=== PATIENT | female | born 1960 | race Caucasian/White ===

== ENCOUNTER 2022-12-09 14:40 | Observation (INO) | payer OTHER ==
[2022-12-09 15:25] LABS: Basophils % (A) 0 %; Eosinophils # (A) 0.2 k/uL (0-0.7); Eosinophils % (A) 2 %; HCT 36.3 % (34.0-46.0); HGB 12.4 gm/dL (11.4-16.0); Lymphocytes # (A) 1.5 k/uL (1.0-4.8); Lymphocytes % (A) 21 %; MCH 28.3 pg (25.0-35.0); MCV 83.3 fL (80.0-100.0); Mean Platelet Volume 9.1; Monocytes # (A) 0.3 k/uL (0-1.0); Monocytes % (A) 5 %; Neutrophils # (A) 5.2 k/uL (1.3-7.7); Neutrophils % (A) 71 %; Platelet Count 154 k/uL (150-450); RBC 4.36 m/uL (3.80-5.40); RDW 14.4 % (11.5-15.5); WBC 7.3 k/uL (3.8-10.6)
[2022-12-09 15:32] LABS: ALT 18 U/L (4-34); AST 28 U/L (14-36); African American GFR (CKD) >90 (>60 ml/min/1.73 sqM); Albumin 4.2 g/dL (3.5-5.0); Alkaline Phosphatase 114 U/L (38-126); Anion Gap 7 mmol/L; Blood Urea Nitrogen 8 mg/dL (7-17); Calcium 9.2 mg/dL (8.4-10.2); Carbon Dioxide 29 mmol/L (22-30); Chloride 105 mmol/L (98-107); Glucose 104 mg/dL (74-99); Non-African American GFR(CKD) >90 (>60 ml/min/1.73 sqM); Potassium 3.7 mmol/L (3.5-5.1); Sodium 141 mmol/L (137-145); Total Bilirubin 0.5 mg/dL (0.2-1.3); Total Protein 7.5 g/dL (6.3-8.2)
[2022-12-09 15:38] LABS: INR 0.9 (<1.2); Partial Thromboplastin Time 25.1 sec (22.0-30.0); Prothrombin Time 9.8 sec (9.0-12.0)
--- NOTE | 2022-12-09 15:43 | XR ---
EXAMINATION TYPE: XR tibia fibula RT DATE OF EXAM: 12/09/2022 COMPARISON: None HISTORY: Pain, fracture TECHNIQUE: 3 view right tibia and fibula FINDINGS: There is an oblique fracture of the mid diaphysis of the fibula. There is subluxation of the talus laterally. Medial and posterior lateral tibial fractures are eviden t with extension into the articular surface. Note is made of Achilles tendon calcaneal heel spur. Images are obtained through fiberglass splint. IMPRESSION: 1. Fracture of the medial malleolus and posterior tibia and mid diaphyseal oblique fracture fibula.
[2022-12-09] MEDS ORDERED: NALOXONE 0.4 MG/ML 1 ML VIAL IV PRN (15:46)
[2022-12-09] MEDS ORDERED: ONDANSETRON 4 MG/2 ML VIAL IVP PRN (15:46)
--- NOTE | 2022-12-09 15:46 | ED ---
Lower Extremity Injury HPI - General Chief Complaint: Extremity Injury, Lower Stated Complaint: ankle injury Time Seen by Provider: 12/09/22 15:01 Source: patient, RN notes reviewed Mode of arrival: wheelchair Limitations: no limitations - History of Present Illness Initial Comments: 62-year-old female presents emergency from chief complaint of right ankle pain, injury. Patient was seen here 2 days ago for this complaint patient was splinted and follow up with orthopedics today. Patient sent over here for surgery tomorrow and to be admitted. Patient remains to be in splint. - Related Data Allergies Allergy/AdvReac Type Severity Reaction Status Date / Time No Known Allergies Allergy Verified 12/07/22 20:28 Review of Systems ROS Statement: Those systems with pertinent positive or pertinent negative responses have been documented in the HPI. ROS Other: All systems not noted in ROS Statement are negative. Past Medical History Past Medical History: Hypertension History of Any Multi-Drug Resistant Organisms: None Reported Past Surgical History: Section Past Psychological History: No Psychological Hx Reported, Depression Smoking Status: Former smoker Past Alcohol Use History: Rare Past Drug Use History: None Reported General Exam Limitations: no limitations General appearance: alert, in no apparent distress Head exam: Present: atraumatic, normocephalic, normal inspection Respiratory exam: Present: normal lung sounds bilaterally. Absent: respiratory distress, wheezes, rales, rhonchi, stridor Cardiovascular Exam: Present: regular rate, normal rhythm, normal heart sounds. Absent: systolic murmur, diastolic murmur, rubs, gallop, clicks Extremities exam: Present: other (Right ankle, leg and short leg splint) Course Vital Signs 12/09/22 14:49 Temperature 98.7 F Pulse Rate 68 Respiratory 16 Rate Blood Pressure 193/79 O2 Sat by Pulse 98 Oximetry Medical Decision Making - Medical Decision Making Was pt. sent in by a medical professional or institution (, PA, PHYSICIAN GYNECOLOGIST, urgent care, hospital, or [facility]...) When possible be specific @ -Dr. Simpson Did you speak to anyone other than the patient for history (EMS, parent, family, police, friend...)? What history was obtained from this source @ -No Did you review nursing and triage notes (agree or disagree)? Why? @ -I reviewed and agree with nursing and triage notes Were old charts reviewed (outside hosp., previous admission, EMS record, old EKG, old radiological studies, urgent care reports/EKG's, [facility] records)? Report findings @ -Reviewed prior imaging Differential Diagnosis (chest pain, altered mental status, abdominal pain women, abdominal pain men, vaginal bleeding, weakness, fever, dyspnea, syncope, headache, dizziness, GI bleed, back pain, seizure, CVA, palpatations, mental hea lth, musculoskeletal)? @ -Right ankle fracture, dislocation EKG interpreted by me (3pts min.). @ -As above X-rays interpreted by me (1pt min.). @ -[X-ray tib-fib showing evidence of trimalleolar fracture, mid fibular fracture CT interpreted by me (1pt min.). @ -CT ankle showing displacement, fracture U/S interpreted by me (1pt. min.). @ -None done What testing was considered but not performed or refused? (CT, X-rays, U/S, labs)? Why? @ -None What meds were considered but not given or refused? Why? @ -None Did you discuss the management of the patient with other professionals (professionals i.e. , PA, PHYSICIAN GYNECOLOGIST, lab, RT, psych nurse, psychosocial rehabilitation counselor, upholstery mechanic, teacher, chief compliance officer, showcase maker)? Give summary @ -Dr. Simpson about admission Was smoking cessation discussed for >3mins.? @ -No Was critical care preformed (if so, how long)? @ -No Were there social determinants of health that impacted care today? How? (Homelessness, low income, unemployed, alcoholism, drug addiction, transportation, low edu. Level, literacy, decrease access to med. care, prison, rehab)? @ -No Was there de-escalation of care discussed even if they declined (Discuss DNR or withdrawal of care, Hospice)? DNR status @ -No What co-morbidities impacted this encounter? (DM, HTN, Smoking, COPD, CAD, Cancer, CVA, ARF, Chemo, Hep., AIDS, mental health diagnosis, sleep apnea, morbid obesity)? @ -None Was patient admitted / discharged? Hospital course, mention meds given and route, prescriptions, significant lab abnormalities, going to OR and other pertinent info. @ -[Patient is admitted to orthopedics with consult to medicine for surgery tomorrow. Patient is to be nothing by mouth at midnight Undiagnosed new problem with uncertain prognosis? @ -No Drug Therapy requiring intensive monitoring for toxicity (Heparin, Nitro, Insulin, Cardizem)? @ -No Were any procedures done? @ -No Diagnosis/symptom? @ -Right bimalleolar fracture Acute, or Chronic, or Acute on Chronic? @ -Acute Uncomplicated (without systemic symptoms) or Complicated (systemic symptoms)? @ -Uncomplicated Side effects of treatment? @ -No Exacerbation, Progression, or Severe Exacerbation? @ -No Poses a threat to life or bodily function? How? (Chest pain, [place], [place], pneumonia, PE, COPD, DKA, ARF, appy, cholecystitis, CVA, Diverticulitis, Homicidal, Suicidal, threat to staff... and all critical care pts) @ -No - Lab Data Result diagrams: 12/09/22 15:07 12/09/22 15:07 Lab Results 12/09/22 12/09/22 12/09/22 Range/Units 15:07 15:07 15:07 WBC 7.3 (3.8-10.6) k/uL RBC 4.36 (3.80-5.40) m/uL Hgb 12.4 (11.4-16.0) gm/dL Hct 36.3 (34.0-46.0) % MCV 83.3 (80.0-100.0) fL MCH 28.3 (25.0-35.0) pg MCHC 34.0 (31.0-37.0) g/dL RDW 14.4 (11.5-15.5) % Plt Count 154 (150-450) k/uL MPV 9.1 Neutrophils % 71 % Lymphocytes % 21 % Monocytes % 5 % Eosinophils % 2 % Basophils % 0 % Neutrophils # 5.2 (1.3-7.7) k/uL Lymphocytes # 1.5 (1.0-4.8) k/uL Monocytes # 0.3 (0-1.0) k/uL Eosinophils # 0.2 (0-0.7) k/uL Basophils # 0.0 (0-0.2) k/uL PT 9.8 (9.0-12.0) sec INR 0.9 (<1.2) APTT 25.1 (22.0-30.0) sec Sodium 141 (137-145) mmol/L Potassium 3.7 (3.5-5.1) mmol/L Chloride 105 (98-107) mmol/L Carbon Dioxide 29 (22-30) mmol/L Anion Gap 7 mmol/L BUN 8 (7-17) mg/dL Creatinine 0.71 (0.52-1.04) mg/dL Est GFR (CKD-EPI)AfAm >90 (>60 ml/min/1.73 sqM) Est GFR (CKD-EPI)NonAf >90 (>60 ml/min/1.73 sqM) Glucose 104 H (74-99) mg/dL Calcium 9.2 (8.4-10.2) mg/dL Total Bilirubin 0.5 (0.2-1.3) mg/dL AST 28 (14-36) U/L ALT 18 (4-34) U/L Alkaline Phosphatase 114 (38-126) U/L Total Protein 7.5 (6.3-8.2) g/dL Albumin 4.2 (3.5-5.0) g/dL Disposition Clinical Impression: Closed right ankle fracture, Dislocation of right ankle joint Disposition: ADMITTED IP TO THIS [facility] Condition: Fair Referrals: None,Stated [Primary Care Provider] - 1-2 days Time of Disposition: 15:45
--- NOTE | 2022-12-09 16:27 | CT ---
EXAMINATION TYPE: CT ankle RT wo con DATE OF EXAM: 12/09/2022 COMPARISON: none HISTORY: right ankle pain from fall CT DLP: 79.[address] of the right ankle with reconstruction imaging. TECHNIQUE: Unenhanced CT of the right ankle was performed with bone and soft tissue window settings s ubmitted in the axial coronal and sagittal planes. At a separate workstation [id number] TR imaging was obta ined. FINDINGS: There is disruption of the ankle mortise with widening of the tibiotalar joint space at 13 mm. There is a displaced medial malleolar fracture with mild comminution. Displacement is noted at 8 mm. There is comminuted posterior malleolar fracture with displacement of 4 mm. Small ossific density is seen a djacent to the tarsal navicular and this could reflect a small chip or avulsion fracture. There is so ft tissue deformity and extensive edema seen. The talus is intact as is the os calcis. Plantar and do rsal calcaneal spur seen. IMPRESSION: 1. Disruption of the ankle mortise. 2. Displaced fractures of the medial and posterior malleoli. Extensive soft tissue swelling.
[2022-12-09] MEDS ORDERED: hydrALAZINE HCL 25 MG TAB PO STA (21:34)
--- NOTE | 2022-12-09 22:46 | P.CONS ---
History of Present Illness - Reason for Consult Consult date: 12/09/22 Medical management Requesting physician: William Simpson - Chief Complaint Disruption of ankle mortise - History of Present Illness This is a pleasant 62-year-old patient, follows with Dr. Durham. Patient initially presented to the hospital ER on December 07. Pain in the right ankle while walking her dog she is wrapped around the lesion fell down. Severe pain in the right ankle. She was splinted prior to arrival. X-ray had revealed acute fracture with complete dislocation of the ankle. Lateral displacement. Respect her tibia. Posterior and medial malleolus fracture fragments up for present. Some separation of tibia and fibula. Soft tissue swelling. Patient was splinted in the ER and sent home. Patient seen by Dr. Simpson's office and sent to the ER, for surgery tomorrow. In a splint. Pain present. Patient otherwise has got a good exercise tolerance. No cardiac history. No chest pain or shortness of breath. Review of systems: GEN.: None EYES: None HEENT: None NECK: None RESPIRATORY: None CARDIOVASCULAR: None GASTROINTESTINAL: Occasional reflux GENITOURINARY: None MUSCULOSKELETAL: As above and pain in the hand joints LYMPHATICS: None HEMATOLOGICAL: None PSYCHIATRY: None NEUROLOGICAL: None Past medical history to include: Depression, anxiety, reflux Social history: Lives alone. Her daughter's [id number] lives downstairs. Patient smoked for about 15 years stopped about 30 years ago. Alcohol occasionally. Physical examination: VITAL SIGNS: 99.1, 65, 17, 1 88 x 75, 98% room air GENERAL: BMI 34.8, declining but awake comfortable. EYES: Pupils equal. Conjunctiva normal. HEENT: External appearance of nose and ears normal, oral cavity grossly normal. NECK: JVD not raised; masses not palpable. HEART: First and second heart sounds are normal; no edema. LUNGS: Respiratory rate normal; clear to auscultation. ABDOMEN: Soft, nontender, liver spleen not palpable, no masses palpable. PSYCH: Alert and oriented x3; mood and affect normal. MUSCULOSKELETAL:No Clubbing/cyanosis;muscles-grossly intact. Oriented the hands. Right ankle splint dressing NEUROLOGICAL: Cranial nerves grossly intact; no facial asymmetry, power and sensation grossly intact. LYMPHATICS: No lymph nodes palpable in the axilla and neck INVESTIGATIONS, reviewed in the clinical context: White count 7.3 hemoglobin 12.4 platelets 154 sodium 141 potassium 3.7 creatinine 0.71 Assessment and plan: -Right ankle fracture, on December 07. Patient has been is a splint outpatient. Now being admitted for surgery. By Dr. Simpson. -Essential hypertension, uncontrolled We be noted that patient the pressure was running high even when patient presented to the ER 2 days ago. Probably some component of pain. Lopressor 50 mg twice a day -Depression and anxiety not otherwise specified Prozac -GERD Pepcid 20 mg daily at bedtime -Primary osteoarthritis of the hands Tylenol as needed -Obesity BMI 34.8 Weight loss measures, outpatient Given her history of smoking and high blood pressure will do an EKG and a check chest x-ray. Muscle blood pressure is under better control patient is medically stable to proceed with surgery. Patient has a "underlying exercise tolerance with no cardiac history or symptoms. Care was discussed the patient. Questions answered. Thank you Dr. Simpson. Past Medical History Past Medical History: Hypertension History of Any Multi-Drug Resistant Organisms: None Reported Past Surgical History: Section Additional Past Surgical History / Comment(s): x2. Past Anesthesia/Blood Transfusion Reactions: No Reported Reaction Past Psychological History: No Psychological Hx Reported, Depression Smoking Status: Former smoker Past Alcohol Use History: Rare Past Drug Use History: None Reported Medications and Allergies Home Medications Medication Instructions Recorded Confirmed Type FLUoxetine HCL [PROzac] 20 mg PO DAILY 12/09/22 12/09/22 History Allergies Allergy/AdvReac Type Severity Reaction Status Date / Time No Known Allergies Allergy Verified 12/09/22 18:22 Physical Exam Vitals: Vital Signs Temp Pulse Pulse Resp BP BP Pulse Ox 12/09/22 19:54 99.1 F 65 17 188/75 98 12/09/22 18:36 98.8 F 70 18 194/91 98 12/09/22 18:02 99 F 71 18 163/76 99 12/09/22 14:49 98.7 F 68 16 193/79 98 Intake and Output 12/09/22 12/09/22 12/09/22 06:59 14:59 22:59 Other: Weight 100.698 kg 100.698 kg Results CBC & Chem 7: 12/09/22 15:07 12/09/22 15:07 Labs: Abnormal Lab Results - Last 24 Hours (Table) 12/09/22 Range/Units 15:07 Glucose 104 H (74-99) mg/dL
[2022-12-09] MEDS: METOPROLOL TARTRATE 50 MG TAB PO SCH (23:09)
[2022-12-09] MEDS: ENOXAPARIN 40 MG/0.4 ML SYRINGE SQ SCH (23:10)
[2022-12-10] MEDS: HYDROcodone/APAP 5-325MG 1 EACH TAB PO PRN ×2 (00:32→21:04)
[2022-12-10] MEDS: FLUoxetine HCL 20 MG CAP PO SCH (08:25)
[2022-12-10] MEDS: METOPROLOL TARTRATE 50 MG TAB PO SCH ×2 (08:25→21:04)
--- NOTE | 2022-12-10 09:23 | XR ---
EXAMINATION TYPE: XR chest 1V portable DATE OF EXAM: 12/10/2022 Comparison: None Clinical History: 62-year-old female preoperative assessment, ex-smoker, Findings: The heart is upper limits of normal in size. Aorta and pulmonary vasculature within normal limits. No consolidation or pleural effusion. Impression: No acute cardiopulmonary process.
--- NOTE | 2022-12-10 09:53 | P.HPOR ---
History of Present Illness H&P Date: 12/10/22 Chief Complaint: Right ankle fracture, right mid shaft fibular fracture Patient is a 62-year-old female who was admitted to [facility] on 12/09/2022 after being evaluated by Dr. Simpson in the outpatient setting after an injury to her right ankle. Patient was initially evaluated at [facility] ER on 12/07/2022 after being knocked over by his dog. Patient was brought to the hospital by EMS, there is obvious deformity to the right lower extremity. Images did demonstrate a right ankle dislocation with syndesmotic disruption, medial and posterior malleolus fracture and a midshaft fibular fracture. We were not contacted by the emergency room staff regarding this patient. Patient didn't show up in the office for evaluation by Dr. Samara nevarez, was determined due to the displacement that she would need surgery, she was advised to report to the hospital for admission and surgical procedure. Patient was evaluated today at bedside, she is resting comfortably with the foot elevated. Internal medicine is alert he evaluated the patient. The posterior splint remains intact. She notes discomfort in the right lower extremity near the foot and ankle. She denies any other orthopedic complaints at this time. She denies any previous orthopedic surgery to the right lower extremity. Patient denies any on any blood thinners. Review of Systems Constitutional: Reports as per HPI Past Medical History Past Medical History: Hypertension History of Any Multi-Drug Resistant Organisms: None Reported Past Surgical History: Section Additional Past Surgical History / Comment(s): x2. Past Anesthesia/Blood Transfusion Reactions: No Reported Reaction Past Psychological History: No Psychological Hx Reported, Depression Smoking Status: Former smoker Past Alcohol Use History: Rare Past Drug Use History: None Reported Medications and Allergies Home Medications Medication Instructions Recorded Confirmed Type FLUoxetine HCL [PROzac] 20 mg PO DAILY 12/09/22 12/09/22 History Allergies Allergy/AdvReac Type Severity Reaction Status Date / Time No Known Allergies Allergy Verified 12/09/22 18:22 Physical Examination Right lower extremity: Postop splint and Huber wrap are positioned Logroll maneuver the hip reproduces no groin pain, no tenderness with palpation surrounding the right knee Patient is able to wiggle the toes Sensation to light touch both proximal/distal to the splint are intact, skin is warm to touch Results - Labs Labs: Abnormal Lab Results - Last 24 Hours (Table) 12/09/22 Range/Units 15:07 Glucose 104 H (74-99) mg/dL H & H 12/09/22 Range/Units 15:07 Hgb 12.4 (11.4-16.0) gm/dL Hct 36.3 (34.0-46.0) % Coagulation 12/09/22 Range/Units 15:07 INR 0.9 (<1.2) Result Diagrams: 12/09/22 15:07 12/09/22 15:07 - Diagnostic results Ankle/Foot x-ray: report reviewed, image reviewed Ankle/Foot CT: report reviewed, image reviewed Assessment and Plan Assessment: Right ankle medial malleolar and posterior malleolar fractures Right midshaft fibular fracture Status post ankle dislocation and relocation Other medical comorbidities Plan: Imaging: Multiple x-rays were reviewed both prereduction and postreduction films along with ankle CT of the right ankle. Images demonstrate along with reports displaced fractures involving the medial malleolus and posterior malleolus of the right ankle. The mid shaft right fibular fracture is also noted. Plan: Patient was evaluated in the outpatient setting by Dr. Simpson on 12/09/2022, and she was then admitted to the hospital with plan for surgical intervention Risks and benefits of the procedure were again discussed the patient at bedside, this including but not excluded blood loss, neurovascular injury, developmental blood clots, and medical healing of bone, need for further surgery. Patient is in good understanding like to proceed Patient will be scheduled for an ORIF of the right ankle versus external fixator placement pending soft tissue quality Nonweightbearing right lower extremity at this time, ELEVATION AND ICE DVT prophylaxis, subcu medications restarted after surgery Pain control, oral and IVs as needed Medical recommendations Further recommendations to follow Time with Patient: Less than 30
[2022-12-10] MEDS: ENOXAPARIN 40 MG/0.4 ML SYRINGE SQ SCH (10:32)
[2022-12-10] MEDS: HYDROmorphone 0.5 MG/0.5 ML SYRINGE IVP PRN (10:54)
[2022-12-10] MEDS: CHLORTHALIDONE 25 MG TAB PO SCH (13:32)
--- NOTE | 2022-12-10 15:49 | P.PN ---
Progress Note - Text Progress Note Date: 12/10/22 PT seen and examined in Pre op. All questions answered. She agrees with plan of ex-fix vs ORIF of the ankle and understands the reasons for both procedures. She and her daughter at bedside had all questions answered. We went over risk review again and they were comfortable proceeding. Site was marked. Consent signed.
[2022-12-10] MEDS ORDERED: LACTATED RINGERS 1,000 ML IV ONE ×2 (15:51→18:23)
[2022-12-10] MEDS ORDERED: MIDAZOLAM 2 MG/2 ML VIAL IVP ONE (16:08)
[2022-12-10] MEDS ORDERED: fentaNYL (PF) 50 MCG/ML 2 ML AMP IVP ONE (16:29)
[2022-12-10] MEDS ORDERED: ePHEDrine 50 MG/ML 1 ML VIAL ONE (16:30)
[2022-12-10] MEDS ORDERED: MIDAZOLAM 2 MG/2 ML VIAL ONE (16:30)
[2022-12-10] MEDS ORDERED: fentaNYL (PF) 50 MCG/ML 2 ML AMP ONE (16:30)
[2022-12-10] MEDS ORDERED: HYDROmorphone (PF) 1 MG/ML ONE (16:30)
[2022-12-10] MEDS ORDERED: LIDOCAINE 1% INJ 10MG/ML (20 ML MDV) ONE (16:30)
[2022-12-10] MEDS ORDERED: PROPOFOL 10 MG/ML 20 ML VIAL IV ONE (16:30)
[2022-12-10] MEDS ORDERED: GENTAMICIN 380 MG in SODIUM CHLORIDE 0.9% 100 ML IVPB PRN (17:03)
[2022-12-10] MEDS ORDERED: ceFAZolin 1,000 MG in SODIUM CHLORIDE 0.9% 1,000 ML IRRIGATION ONE (17:11)
--- NOTE | 2022-12-10 18:11 | XR ---
Fluoroscopy History: ORIF RIGHT ANKLE 1 min 13 sec fl-DAP .77
--- NOTE | 2022-12-10 18:56 | P.OP ---
Date of Procedure: 12/10/22 Preoperative Diagnosis: 1. RIGHT TRIMALLEOLAR FRACTURE DISLOCATION 2. S/P FALL FROM STANDING Postoperative Diagnosis: 1. RIGHT TRIMALLEOLAR FRACTURE DISLOCATION 2. S/P FALL FROM STANDING Procedure(s) Performed: 1. OPEN REDUCTION AND INTERNAL FIXATION RIGHT ANKLE MEDIAL MALLEOLUS AND SYNDESMOSIS 2. APPLICATION OF SHORT LEG AO SPLINT RIGHT Implants: ARTHREX MEDIAL COMPRESSION LOCKING SCREWS ARTHREX TIGHT ROPE X2 WITH TWO HOLE LATERAL PLATE ARTHROCELL 2.5 CC Anesthesia: MAC Surgeon: William Simpson Floor Supervisor #1: Clifton Carrasco (RUDDY Liang Was present and assisted with all aspects of the case from positioning to dressing placement) Estimated Blood Loss (ml): 25 IV fluids (ml): 1,200 Urine output (ml): 0 Pathology: none sent Condition: stable Disposition: PACU Indications for Procedure: Orthopedic Surgery Risk Review Marycarmen Winters is a 62-year-old female presenting for evaluation of sudden onset right ankle pain, inability to ambulate after her dog tripped her and she fell twisting her right ankle. It was my pleasure to have seen and examined Marycarmen Winters. In our visit today we have had a chance to go over subjective complaints, physical examination findings and treatments including the natural course history without intervention and various interventional options. her imaging demonstrates right ankle fracture dislocation trimalleolar. On physical exam, Marycarmen Winters demonstrates pain with motion of right lower extremity, which is NV intact at this time. I have explained to the patient that this fracture needs stabilization. Based on the patients imaging, physical exam, and the rapid progression and disabling nature of her symptoms, at this time I recommend surgery in the form or a: open reduction internal fixation right ankle with syndesmotic fixation versus ex-fix placement I discussed the risk and benefits of this procedure at length with Marycarmen Winters. Questions were invited and answered, and the patient wishes to proceed as outlined below. Currently, I am recommendin. open reduction and internal fixation right ankle with syndesmotic fixation versus ex-fix 2. Review of surgical risks and benefits as well as an educational packet on the proposed surgical procedure. Risks: All surgical procedures come with inherent risks, including those related to positioning, anesthesia, intraoperative findings, and postoperative complications. It is important to understand that surgery does not come with any guarantee of a successful outcome as complications and adverse events are always possible. The patient was given a handout discussing the surgical procedure and risks associated with the intervention, both of which were discussed with the patient. These risks include but are not limited to the following: - Experiencing same, different or even worse symptoms compared to before surgery. - Requiring further surgery or other forms of treatment presently or at some time in the future . - On an extreme but fortunately relatively rare basis severe complication such as blindness, stroke, heart attack, temporary and/or permanent nerve injury, paralysis, coma, or may occur, sometimes without known expl anation. - Surgical complications may include but are not limited to risk of infection, fluid accumulation in the surgical dissection site, including a seroma or hematoma, that requires additional surgery, wound drainage, bleeding, new numbness or weakness, vision changes/loss, spinal fluid leakage, non-healing and/or infected incision, headaches, difficulty or inability to swallow, hoarsen ess, hemopneumothorax, pneumothorax, injury to nerves, spinal cord, blood vessels, lymphatics or other vital organs (i.e., bowel injury, injury to the great vessels); heterotopic bone formation; complications related to the hardware such as screws, rods, including misplaced hardware, device failure, hardware fracture/breakage, or hardware loosening; retained surgical instrumentations or devices and the need for further surgery. - Medical risks of the planned surgery include but are not limited to generalized Infections to the whole body or local areas outside of the surgical site (sepsis), heart attack, bleeding, anaphylaxis, meningitis, seizure, epilepsy, hearing loss, burn jacob, laceration of the head or other areas of the body, bruising, hypersensitivity of the skin, bladder over distension; allergic reaction; shoulder injury related to positioning; fat, blood and air clots to other areas of the body like heart, lungs, brain; failure of internal organs such as lungs, kidneys, liver and excessive bleeding. If blood transfusions are necessary, note that transfusions may cause intolerance reactions such as anaphylaxis or other complex reactions. Despite best efforts, the results of surgery might not heal in terms of bone, soft tissues such as skin, fascia, ligaments, and joints. [facility] has multiple operating rooms with single and overlapping r ooms running daily. They currently function under the required guidelines as produced by the Senate Finance Committee with regards to the overlapping rooms and will continue to comply with changes to this policy as they occur. The requirements include and are complied with as follows: (1) the critical portions of the overlapping rooms will not occur at the same time, (2) the attending physician will be physically present during the critical portions of the procedure and immediately available during the entire case, and (3) a back-up attending is designated should the primary attending not be immediately available. The patient has had a chance to review all the listed information, has been given print outs detailing this information, and has had all his/her questions answered to their satisfaction. It was my pleasure to have seen and examined Marycarmen Winters. In our visit today we have had a chance to go over my understanding of our patient's current condi tion, the natural course history without intervention and various interventional options. Questions were invited and answered, and the patient wishes to proceed as outlined above. I have seen and examined the patient for 25 minutes and we have spent more than 50% of the time in repeat and detailed counseling about the patient's condition, its natural course history with out and as much as can be p redicted with surgery and re-review of various surgical treatment options. In conclusion, Marycarmen Winters and daughter at bedside requested we proceed with the above suggested surgery and are willing to accept risks and limitations of the suggested surgery as nature of the disease process and our best attempts at treatment for the condition. Thank you again for allowing us to be part of your patient's care. Please don't hesitate to contact me if you have any further questions. Signed and authenticated by: William Kim [facility] [address] [place] [id number] Description of Procedure: Right ankle ORIF (Trimal) with syndesmotic fixation The patient was seen and examined in the preoperative area. All preoperative protocols were followed. Informed consent was obtained, risks and benefits of the procedure were discussed at length. Risks including bleeding infection damage to the surrounding tissue and risk of reoperation were discussed with the patient. Risk of anesthesia up to and including was discussed with the patient. These are outlined in the risk reviewed. They were willing to accept these risks and all of the risks of surgery. The patient was given a weight- based dose of antibiotics in the form of 2 g Ancef. The patient was seen and evaluated by the anesthesia team who deemed them fit for surgery. The site was marked, the patient was willing to proceed with the procedure. The patient was transferred to the operative suite by the Department of anesthesia. T andreay were then drifted off to sleep by the department of anesthesia and GETA anesthesia was used. Once adequate anesthesia had been obtained the patient was carefully transferred to the operative bed. All bony prominences were padded acc ordingly. SCDs were placed on the nonoperative lower extremities. Arms were well padded. The patient's right leg was placed on a bone foam ramp and a tourniquet was placed on the patient's right upper thigh. 1015 placed around the leg. The contralateral leg was secured to the table with tape. A bump was placed under the patient's right hip. Preoperative briefing was done with the operative team and everyone was ready for the procedure to start. The patient's right leg was then prepped and draped in the normal sterile fashion. Timeout was then performed and all parties in agreement with the procedure to be performed. the leg was inspected there were fracture blisters which were starting on the anterior surface however none were in the surgical field or where incisions will be maintained and there is reasonable enough wrinkling tibial to fix the ankle at this time at least the syndesmosis and the medial malleolus. Posteriorly there is a lot of swelling and hematoma and sole of the posterior mount might have to wait until later date. Leg was exsanguinated and the tourniquet inflated to 280 mmHg. incision was made longitudinally over the medial malleolus which was highly displaced an unstable. Blunt dissection taken down until the fracture was identified fracture line was then cleaned of any periosteum. The fracture itself was then curetted and irrigated. A drill hole was made proximally in the tibia and a [id number] clamp was then used to reduce the medial malleolus and position. The fracture was grafted as well at this point to 20 K wires were then placed for stability followed by a 1.6 K wire in the trajectory of the medial malleolar screws that was desired. 2 of these screws were then placed over K wires which were previously placed in optimal position on AP and lateral. This held the fracture reduced while the clamp was removed and the fracture was tested and was stable. The 2 pins were removed and the fracture again was tested and it was stable. Attention was then drawn to the lateral side of the ankle. Skin incision was made longitudinally over the distal lateral fibula blunt dissection taken down. There is true periosteal stripping just happened due to the large syndesmotic injury. A cotton test confirmed syndesmotic injury under AP fluoroscopy. A 2 hole plate was then selected and pinned in position with an drilled just above the physis still scar and a 30 anterior orientation for a tight rope. First tight rope was then placed and secured into position and a second tight rope was then drilled in a similar fashion and placed and secured into position. Both tight ropes were then tensioned. This allowed for great reduction of the syndesmosis. These were then secured the patient was removed from the plate and was stable. The ankle was again tested with external rotation and cotton test which showed syndesmotic stability. Lateral imaging revealed a posterior malleolus piece which had not reduced entirely and was somewhat large and also showed some increased instability when plantar flexion. It was discussed with the patient previously in the perioperative area that we might have to come back and fix the posterior malleolus of the different time as her swelling was too much posteriorly to be able to achieve this through the incision we made or a separate posterior incision. the wounds were then copiously irrigated with normal sterile saline final images confirmed good reduction and stability of the ankle. The wounds were then closed with 0 Vicryl in the subcu tissue and 2-0 nylon in a running fashion in the skin. The wound edges approximated very well. The wounds were then cleaned and dressed sterilely with Adaptic 4 x 4's ABDs and overwrapped with web roll. She was then placed in a well-padded well molded AO short-leg splint on the right which was then overwrapped with an Huber wrap. The patient was then transferred back to their hospital bed. They were awakened by the department of anesthesia having tolerated the procedure very well with no complications. The patient was then transported to the postoperative care unit in stable condition.
[2022-12-10] MEDS ORDERED: HYDROmorphone 0.5 MG/0.5 ML SYRINGE IVP PRN (19:34)
[2022-12-10] MEDS ORDERED: hydrOXYzine pamoate 25 MG CAP PO PRN (19:34)
[2022-12-10] MEDS ORDERED: SENNOSIDES-DOCUSATE SODIUM 1 EACH TAB PO PRN (19:34)
[2022-12-10] MEDS ORDERED: HYDROmorphone 1 MG/ML 1 ML SYRINGE IVP PRN (19:34)
--- NOTE | 2022-12-10 20:19 | P.PN ---
Progress Note - Text Progress Note Date: 12/10/22 - Chief Complaint Disruption of ankle mortise - History of Present Illness This is a pleasant 62-year-old patient, follows with Dr. Durham. Patient initially presented to the hospital ER on December 07. Pain in the right ankle while walking her dog she is wrapped around the lesion fell down. Severe pain in the right ankle. She was splinted prior to arrival. X-ray had revealed acute fracture with complete dislocation of the ankle. Lateral displacement. Respect her tibia. Posterior and medial malleolus fracture fragments up for present. Some separation of tibia and fibula. Soft tissue swelling. Patient was splinted in the ER and sent home. Patient seen by Dr. Simpson's office and sent to the ER, for surgery tomorrow. In a splint. Pain present. Patient otherwise has got a good exercise tolerance. No cardiac history. No chest pain or shortness of breath. December 10: Patient seen this morning. Resting in bed. Nothing by mouth for surgery. No new conditions. Discussed with nurse. Pending surgery this afternoon. EKG and chest x-ray reviewed. Informed nurse again patient is stable for surgery. Medications reviewed Past medical history to include: Depression, anxiety, reflux Social history: Lives alone. Her daughter's tuuglg-to-fib lives downstairs. Patient smoked for about 15 years stopped about 30 years ago. Alcohol occasionally. Physical examination: VITAL SIGNS: 98.3, 57, 17, 1:30/72, 96% room air GENERAL: BMI 34.8, and declining in bed comfortable EYES: Pupils equal. Conjunctiva normal. HEENT: External appearance of nose and ears normal, oral cavity grossly normal. NECK: JVD not raised; masses not palpable. HEART: First and second heart sounds are normal; no edema. LUNGS: Respiratory rate normal; clear to auscultation. ABDOMEN: Soft, nontender, liver spleen not palpable, no masses palpable. PSYCH: Alert and oriented x3; mood and affect normal. MUSCULOSKELETAL:No Clubbing/cyanosis;muscles-grossly intact. Oriented the hands. Right ankle splint dressing INVESTIGATIONS, reviewed in the clinical context: EKG tracing personally reviewed by me-normal sinus rhythm Chest x-ray film personally reviewed by me-clear White count 7.3 hemoglobin 12.4 platelets 154 sodium 141 potassium 3.7 creatinine 0.71 Assessment and plan: -Right ankle fracture, on December 07. Patient has been is a splint outpatient. Pending surgery this afternoon. By Dr. Simpson. -Essential hypertension, controlled Chlorthalidone 25 mg daily added Lopressor 50 mg twice a day -Depression and anxiety not otherwise specified Prozac -GERD Pepcid 20 mg daily at bedtime -Primary osteoarthritis of the hands Tylenol as needed -Obesity BMI 34.8 Weight loss measures, outpatient Stable to proceed for surgery. Discussed with patient. Discussed with nurse. Thank you Dr. Simpson. Past Medical History Past Medical History: Hypertension History of Any Multi-Drug Resistant Organisms: None Reported Past Surgical History: Section Additional Past Surgical History / Comment(s): x2. Past Anesthesia/Blood Transfusion Reactions: No Reported Reaction Past Psychological History: No Psychological Hx Reported, Depression Smoking Status: Former smoker Past Alcohol Use History: Rare Past Drug Use History: None Reported
[2022-12-10 20:25] LABS: Basophils % (A) 0 %; Eosinophils # (A) 0.2 k/uL (0-0.7); Eosinophils % (A) 3 %; HCT 32.7 % (34.0-46.0); HGB 10.3 gm/dL (11.4-16.0); Lymphocytes # (A) 1.3 k/uL (1.0-4.8); Lymphocytes % (A) 21 %; MCHC 31.4 g/dL (31.0-37.0); MCV 85.9 fL (80.0-100.0); Mean Platelet Volume 10.4; Monocytes # (A) 0.3 k/uL (0-1.0); Monocytes % (A) 5 %; Neutrophils # (A) 4.2 k/uL (1.3-7.7); Neutrophils % (A) 70 %; Platelet Count 141 k/uL (150-450); RDW 14.6 % (11.5-15.5); WBC 6.1 k/uL (3.8-10.6)
--- NOTE | 2022-12-10 21:12 | CT ---
EXAMINATION TYPE: CT ankle RT wo con DATE OF EXAM: 12/10/2022 COMPARISON: 12/09/2022 HISTORY: 62-year-old female Post op alignment eval. TECHNIQUE: Contiguous axial scanning of the right ankle without IV contrast. Coronal and sagittal rec onstructions performed. 3 view reconstructions generated on a dedicated workstation. CT DLP: 503.8 mGycm Automated exposure control for dose reduction was used. FINDINGS: Generalized soft tissue swelling. Redemonstrated transverse fracture through the base of the medial malleolus. Interval placement of 2 cortical screw fixation of the medial malleolus fracture fragment. While alignment has improved signi ficantly, there is residual 3 mm lateral displacement in comparison to 9 mm previously. The margins o f the fracture have been brought into apposition. Comminuted fracture posterior malleolus is redemonstrated. An osseous gap of the posterior tibial art icular surface measures up to 7 mm, unchanged from prior. There is a persistent 1.2 cm fracture fragm ent embedded within the intervening gap, sagittal image 58 and axial image 72. Intra-articular extens ion into both the posterior tibiotalar joint as well as the distal tibiofibular joint. There is syndesmotic tight rope fixation also present. Scattered soft tissue and intra-articular air related to patient's operation. Note that the posterior tibial tendon is entrapped between the posterior malleolar fracture fragment. For example, reference axial image 70. Small posterior and plantar heel spurs. There is mild to moderate fusiform thickening at the Achilles insertion compatible with tendinopathy. IMPRESSION: 1. COMMINUTED FRACTURE POSTERIOR MALLEOLUS IS REDEMONSTRATED. THERE IS PERSISTENT 7 MM OSSEOUS GAP OF THE DISTAL TIBIAL ARTICULAR SURFACE AND A PERSISTENT 1.2 CM FRACTURE FRAGMENT EMBEDDED WITHIN THE IN TERVENING GAP. ADDITIONAL INTRA-ARTICULAR EXTENSION INTO THE DISTAL TIBIOFIBULAR JOINT. 2. NOTE THAT THE POSTERIOR TIBIAL TENDON HAS BECOME ENTRAPPED BETWEEN THE POSTERIOR MALLEOLAR FRACTUR E FRAGMENT. 3. IMPROVED ALIGNMENT OF THE MEDIAL MALLEOLAR FRACTURE FRAGMENT AFTER CORTICAL SCREW FIXATION. MINIMA L 3 MM OF RESIDUAL LATERAL DISPLACEMENT. 4. TRANS-SYNDESMOTIC TIGHT ROPE FIXATION. 5. MILD TO MODERATE INSERTIONAL ACHILLES TENDINOSIS.
--- NOTE | 2022-12-10 22:03 | FL ---
EXAMINATION TYPE: FL guidance operating room DATE OF EXAM: 12/10/2022 Comparison: None Clinical History: 62-year-old female ORIF RIGHT ANKLE Findings: 7 images are provided during syndesmotic fixation as well as medial malleolus fixation. Mildly displa oma fracture of the posterior malleolus is redemonstrated. FLUOROSCOPY Fluoroscopy time of 1 minute 13 seconds was used during right ankle fracture fixation. DAP 0.77 mGyc m2. Impression: Intraoperative fluoroscopy as above.
[2022-12-11] MEDS: HYDROmorphone 0.5 MG/0.5 ML SYRINGE IVP PRN (00:03)
[2022-12-11] MEDS: HYDROcodone/APAP 5-325MG 1 EACH TAB PO PRN ×3 (01:40→21:26)
[2022-12-11] MEDS: ASPIRIN 81 MG PO SCH (09:16)
[2022-12-11] MEDS: METOPROLOL TARTRATE 50 MG TAB PO SCH ×2 (09:16→21:26)
[2022-12-11] MEDS: FLUoxetine HCL 20 MG CAP PO SCH (09:16)
[2022-12-11] MEDS: CHLORTHALIDONE 25 MG TAB PO SCH (09:16)
[2022-12-11] MEDS: ENOXAPARIN 40 MG/0.4 ML SYRINGE SQ SCH (09:16)
--- NOTE | 2022-12-11 13:45 | P.PN ---
Progress Note - Text Progress Note Date: 12/11/22 Patient seen and examined, I reviewed the note, discussed the case with the PA first hand and agree with the assessment and plan of RUDDY Liang. Please see my notes below for any additional recommendations. patient is doing well no fevers chills shortness breath or chest pain overnight. Minimal pain. Still swelling right ankle and toes. Splint in place. 14 points review of systems completed and as stated in HPI, all other systems reviewed are negative. Vital signs stable AO 3 Physical Exam: -Patient is alert and oriented 3 appears well-nourished well-hydrated is in no acute distress. They do not appear septic. -There is TTP right leg and ankle [-Incision is CDI, no EEE, no drainage] -Upper extremities show [5] out of 5 strength in all major muscle groups. [##EXCEPT] -Lower extremities with [5] out of 5 strength in all major muscle groups except for right ankle in splint -There is [FROM] that is [painless] of the b/l UE and LE in all major joints. except for right ankle in splint -They are intact to light touch sensation in C5 to T1 and L2 to S1 nerve distribution. -DTR [2]/4 all upper and lower extremities -Patient has palpable distal pulses all 4 ext -Compartments are soft and compressible. -Patient shows a negative Shari's Cranial nerves II through XII are grossly intact. postop day 1 right ankle ORIF - nonweightbearing right lower extremity - ice rest and elevation for pain is controlled - pain meds as needed - PT OT daily with assist walker - aspirin 81 daily - GI prophylaxis - discussed at length with the patient treatment options. She has a large posterior malleolar fracture which has entrapment of the posterior tibial tendon. She is too swollen yesterday to fix this however she may be okay by Wednesday to have this fixed. We discussed waiting until Wednesday for posterior malleolus fixation and she agrees. We will monitor here in the hospital continue with meds as well as elevation and swelling control. We discussed nonoperative treatment as well however due to the entrapment of the tendon as well as the large piece and the ankle instability of do feel is her best interest to have this fixed. She understands and is grateful. She is in agreement with the plan. We will plan for OR for surgical fixation of the posterior malleolar fracture on December 15.
--- NOTE | 2022-12-11 15:12 | P.PN ---
Progress Note - Text Progress Note Date: 12/11/22 - Chief Complaint Disruption of ankle mortise - History of Present Illness This is a pleasant 62-year-old patient, follows with Dr. Durham. Patient initially presented to the hospital ER on December 07. Pain in the right ankle while walking her dog she is wrapped around the lesion fell down. Severe pain in the right ankle. She was splinted prior to arrival. X-ray had revealed acute fracture with complete dislocation of the ankle. Lateral displacement. Respect her tibia. Posterior and medial malleolus fracture fragments up for present. Some separation of tibia and fibula. Soft tissue swelling. Patient was splinted in the ER and sent home. Patient seen by Dr. Simpson's office and sent to the ER, for surgery tomorrow. In a splint. Pain present. Patient otherwise has got a good exercise tolerance. No cardiac history. No chest pain or shortness of breath. December 10: Patient seen this morning. Resting in bed. Nothing by mouth for surgery. No new conditions. Discussed with nurse. Pending surgery this afternoon. EKG and chest x-ray reviewed. Informed nurse again patient is stable for surgery. December 11: Patient yesterday underwent open reduction internal fixation right ankle medial malleolus and syndesmosis. Had about 75% of lunch. No nausea vomiting. Pain control. In bed. Active Medications Hydrocodone Bitart/Acetaminophen (Hydrocodone/Apap 5-325mg 1 Each Tab) 1 each PO Q4HR PRN PRN Reason: Moderate Pain (Scale 4 to 6) Last Admin: 12/11/22 09:16 Dose: 1 each Aspirin (Aspirin 81 Mg) 81 mg PO DAILY [facility] Last Admin: 12/11/22 09:16 Dose: 81 mg Chlorthalidone (Chlorthalidone 25 Mg Tab) 25 mg PO DAILY [facility] Last Admin: 12/11/22 09:16 Dose: 25 mg Enoxaparin Sodium (Enoxaparin 40 Mg/0.4 Ml Syringe) 40 mg SQ DAILY [facility] Last Admin: 12/11/22 09:16 Dose: 40 mg Fluoxetine HCl (Fluoxetine Hcl 20 Mg Cap) 20 mg PO DAILY [facility] Last Admin: 12/11/22 09:16 Dose: 20 mg Hydromorphone HCl (Hydromorphone 0.5 Mg/0.5 Ml Syringe) 0.5 mg IVP Q3HR PRN PRN Reason: Moderate Pain (Scale 4 to 6) Last Admin: 12/11/22 00:03 Dose: 0.5 mg Hydromorphone HCl (Hydromorphone 0.5 Mg/0.5 Ml Syringe) 0.5 mg IVP Q3HR PRN PRN Reason: Pain Scale 4 to 6 Hydromorphone HCl (Hydromorphone 1 Mg/Ml 1 Ml Syringe) 1 mg IVP Q3HR PRN PRN Reason: Pain Scale 7 to 10 Hydroxyzine Pamoate (Hydroxyzine Pamoate 25 Mg Cap) 25 mg PO Q6HR PRN PRN Reason: Nausea/Anxiety Metoprolol Tartrate (Metoprolol Tartrate 50 Mg Tab) 50 mg PO BID [facility] Last Admin: 12/11/22 09:16 Dose: 50 mg Naloxone HCl (Naloxone 0.4 Mg/Ml 1 Ml Vial) 0.2 mg IV Q2M PRN PRN Reason: Opioid Reversal Ondansetron HCl (Ondansetron 4 Mg/2 Ml Vial) 4 mg IVP Q8HR PRN PRN Reason: Nausea And Vomiting Last Admin: 12/10/22 16:07 Dose: 4 mg Senna/Docusate Sodium (Sennosides-Docusate Sodium 1 Each Tab) 2 each PO HS PRN PRN Reason: Constipation Past medical history to include: Depression, anxiety, reflux Social history: Lives alone. Her daughter's [id number] lives downstairs. Patient smoked for about 15 years stopped about 30 years ago. Alcohol occasionally. Physical examination: VITAL SIGNS: 98.3, 92, 16, 126/65, 96% room air GENERAL: reclining in bed comfortable EYES: Pupils equal. Conjunctiva normal. HEENT: External appearance of nose and ears normal, oral cavity grossly normal. NECK: JVD not raised; masses not palpable. HEART: First and second heart sounds are normal; no edema. LUNGS: Respiratory rate normal; clear to auscultation. ABDOMEN: Soft, nontender, liver spleen not palpable, no masses palpable. PSYCH: Alert and oriented x3; mood and affect normal. MUSCULOSKELETAL:No Clubbing/cyanosis;muscles-grossly intact. Oriented the hands. Right ankle in postoperative dressing INVESTIGATIONS, reviewed in the clinical context: December 10: White count 6.1 hemoglobin 10.3 platelets 141 EKG tracing personally reviewed by me-normal sinus rhythm Chest x-ray film personally reviewed by me-clear White count 7.3 hemoglobin 12.4 platelets 154 sodium 141 potassium 3.7 creatinine 0.71 Assessment and plan: -Right ankle fracture, on December 07. Patient has been is a splint outpatient. ORIF with syndesmosis on December [address] Simpson. -Essential hypertension, controlled Chlorthalidone 25 mg daily Lopressor 50 mg twice a day -Depression and anxiety not otherwise specified Prozac -GERD Pepcid 20 mg daily at bedtime -Primary osteoarthritis of the hands Tylenol as needed -Obesity BMI 34.8 Weight loss measures, outpatient Discussed with patient. Continue current medication. Repeat CBC. Thank you Dr. Simpson. Past Medical History Past Medical History: Hypertension History of Any Multi-Drug Resistant Organisms: None Reported Past Surgical History: Section Additional Past Surgical History / Comment(s): x2. Past Anesthesia/Blood Transfusion Reactions: No Reported Reaction Past Psychological History: No Psychological Hx Reported, Depression Smoking Status: Former smoker Past Alcohol Use History: Rare Past Drug Use History: None Reported
[2022-12-12 07:51] LABS: Basophils % (A) 0 %; Eosinophils # (A) 0.2 k/uL (0-0.7); Eosinophils % (A) 2 %; HCT 31.3 % (34.0-46.0); HGB 10.3 gm/dL (11.4-16.0); Lymphocytes # (A) 1.7 k/uL (1.0-4.8); Lymphocytes % (A) 24 %; MCH 28.4 pg (25.0-35.0); MCHC 33.1 g/dL (31.0-37.0); MCV 85.8 fL (80.0-100.0); Mean Platelet Volume 10.6; Monocytes # (A) 0.3 k/uL (0-1.0); Monocytes % (A) 5 %; Neutrophils # (A) 4.8 k/uL (1.3-7.7); Neutrophils % (A) 67 %; Platelet Count 140 k/uL (150-450); RBC 3.64 m/uL (3.80-5.40); RDW 14.7 % (11.5-15.5); WBC 7.1 k/uL (3.8-10.6)
[2022-12-12] MEDS: ASPIRIN 81 MG PO SCH (08:22)
[2022-12-12] MEDS: ENOXAPARIN 40 MG/0.4 ML SYRINGE SQ SCH (08:22)
[2022-12-12] MEDS: CHLORTHALIDONE 25 MG TAB PO SCH (08:22)
[2022-12-12] MEDS: FLUoxetine HCL 20 MG CAP PO SCH (08:22)
[2022-12-12] MEDS: METOPROLOL TARTRATE 50 MG TAB PO SCH ×2 (08:22→21:27)
--- NOTE | 2022-12-12 11:14 | P.PN ---
Subjective Progress Note Date: 12/12/22 Principal diagnosis: Right trimalleolar fracture and dislocation Patient was seen at bedside this morning lying semirecumbent position with splints/bulky dressing present to the right lower extremity. Patient says she has been up around the room a little bit and trying to remain nonweightbearing to the right lower extremity. Patient patient did discuss the outcome of surgery with Dr. Simpson yesterday. She is aware of surgery for Wednesday to flex her posterior malleolus. Patient says she has urinated since surgery. Patient says the pain is well-controlled with oral medication. Patient denies any numbness/tingling in the right lower extremity. Patient denies any other changes. Patient denies chest pain, fever, shortness of breath, nausea, vomiting, change in, loss of bowel/bladder control. Objective - Vital Signs Vital signs: Vital Signs Temp 99.6 F 12/12/22 07:30 Pulse 67 12/12/22 07:30 Resp 16 12/12/22 07:30 BP 156/65 12/12/22 07:30 Pulse Ox 95 12/12/22 07:30 FiO2 Intake & Output 12/11/22 12/12/22 12/12/22 18:59 06:59 18:59 Intake Total 250 Balance 250 Intake: Oral 250 Other: # Voids 5 2 - Exam Huber bandage and bulky splint present to the right lower extremity from the proximal casts to the MTPJ. Digits in the right foot are lukewarm to the touch. Cap refill under 3 seconds. Sensation is equal, symmetric, bilaterally intact. Patient has full range of motion in right hip and right knee in flexion/extension. Patient has full range of motion throughout the bilateral upper extremities and left lower extremity on exam. Negative Homans. - Labs CBC & Chem 7: 12/12/22 05:39 12/09/22 15:07 Labs: Abnormal Lab Results - Last 24 Hours (Table) 12/12/22 Range/Units 05:39 RBC 3.64 L (3.80-5.40) m/uL Hgb 10.3 L (11.4-16.0) gm/dL Hct 31.3 L (34.0-46.0) % Plt Count 140 L (150-450) k/uL Assessment and Plan Assessment: 1. Right trimalleolar fracture and dislocation - Postop day #2 status post right ankle medial malleolus ORIF and syndesmosis Plan: 1. Right trimalleolar fracture and dislocation - right ankle medial malleolus ORIF and syndesmosis surgery performed , 12/10/2022. Patient stable at bedside this morning with Huber bandage in splint present to right lower extremity. Plan for surgery on 12/15/2022right ankle ORIF posterior malleolus. Oral pain medication as needed. We will continue to follow patient during her stay in hospital. 2. Appreciate medical management 3. Pain management - [place]; Vistaril 4. DVT prophylaxis - aspirin; Lovenox 5. GI prophylaxis - senna 6. PT/OT - nonweightbearing right lower extremity. Use walker 7. Encourage incentive spirometer use Time with Patient: Less than 30
--- NOTE | 2022-12-12 19:21 | P.PN ---
Progress Note - Text Progress Note Date: 12/12/22 - Chief Complaint Disruption of ankle mortise - History of Present Illness This is a pleasant 62-year-old patient, follows with Dr. Durham. Patient initially presented to the hospital ER on December 07. Pain in the right ankle while walking her dog she is wrapped around the lesion fell down. Severe pain in the right ankle. She was splinted prior to arrival. X-ray had revealed acute fracture with complete dislocation of the ankle. Lateral displacement. Respect her tibia. Posterior and medial malleolus fracture fragments up for present. Some separation of tibia and fibula. Soft tissue swelling. Patient was splinted in the ER and sent home. Patient seen by Dr. Simpson's office and sent to the ER, for surgery tomorrow. In a splint. Pain present. Patient otherwise has got a good exercise tolerance. No cardiac history. No chest pain or shortness of breath. December 10: Patient seen this morning. Resting in bed. Nothing by mouth for surgery. No new conditions. Discussed with nurse. Pending surgery this afternoon. EKG and chest x-ray reviewed. Informed nurse again patient is stable for surgery. December 11: Patient yesterday underwent open reduction internal fixation right ankle medial malleolus and syndesmosis. Had about 75% of lunch. No nausea vomiting. Pain control. In bed. December 12: Nonweightbearing on the right leg. Pain control. Eating fair. Patient to go down for further surgical intervention on Wednesday. Active Medications Hydrocodone Bitart/Acetaminophen (Hydrocodone/Apap 5-325mg 1 Each Tab) 1 each PO Q4HR PRN PRN Reason: Moderate Pain (Scale 4 to 6) Last Admin: 12/11/22 21:26 Dose: 1 each Aspirin (Aspirin 81 Mg) 81 mg PO DAILY [facility] Last Admin: 12/12/22 08:22 Dose: 81 mg Chlorthalidone (Chlorthalidone 25 Mg Tab) 25 mg PO DAILY [facility] Last Admin: 12/12/22 08:22 Dose: 25 mg Enoxaparin Sodium (Enoxaparin 40 Mg/0.4 Ml Syringe) 40 mg SQ DAILY [facility] Last Admin: 12/12/22 08:22 Dose: 40 mg Fluoxetine HCl (Fluoxetine Hcl 20 Mg Cap) 20 mg PO DAILY [facility] Last Admin: 12/12/22 08:22 Dose: 20 mg Hydromorphone HCl (Hydromorphone 0.5 Mg/0.5 Ml Syringe) 0.5 mg IVP Q3HR PRN PRN Reason: Moderate Pain (Scale 4 to 6) Last Admin: 12/11/22 00:03 Dose: 0.5 mg Hydromorphone HCl (Hydromorphone 0.5 Mg/0.5 Ml Syringe) 0.5 mg IVP Q3HR PRN PRN Reason: Pain Scale 4 to 6 Hydromorphone HCl (Hydromorphone 1 Mg/Ml 1 Ml Syringe) 1 mg IVP Q3HR PRN PRN Reason: Pain Scale 7 to 10 Hydroxyzine Pamoate (Hydroxyzine Pamoate 25 Mg Cap) 25 mg PO Q6HR PRN PRN Reason: Nausea/Anxiety Metoprolol Tartrate (Metoprolol Tartrate 50 Mg Tab) 50 mg PO BID [facility] Last Admin: 12/12/22 08:22 Dose: 50 mg Naloxone HCl (Naloxone 0.4 Mg/Ml 1 Ml Vial) 0.2 mg IV Q2M PRN PRN Reason: Opioid Reversal Ondansetron HCl (Ondansetron 4 Mg/2 Ml Vial) 4 mg IVP Q8HR PRN PRN Reason: Nausea And Vomiting Last Admin: 12/10/22 16:07 Dose: 4 mg Senna/Docusate Sodium (Sennosides-Docusate Sodium 1 Each Tab) 2 each PO HS PRN PRN Reason: Constipation Past medical history to include: Depression, anxiety, reflux Social history: Lives alone. Her daughter's [id number] lives downstairs. Patient smoked for about 15 years stopped about 30 years ago. Alcohol occasionally. Physical examination: VITAL SIGNS: 98.7, 59, 16, 125/68, 98% room air GENERAL: reclining in bed comfortable EYES: Pupils equal. Conjunctiva normal. HEENT: External appearance of nose and ears normal, oral cavity grossly normal. NECK: JVD not raised; masses not palpable. HEART: First and second heart sounds are normal; no edema. LUNGS: Respiratory rate normal; clear to auscultation. ABDOMEN: Soft, nontender, liver spleen not palpable, no masses palpable. PSYCH: Alert and oriented x3; mood and affect normal. MUSCULOSKELETAL:No Clubbing/cyanosis;muscles-grossly intact. Oriented the hands. Right ankle in postoperative dressing INVESTIGATIONS, reviewed in the clinical context: December 12: White count 7.1 hemoglobin 10.3 platelets 140 December 10: White count 6.1 hemoglobin 10.3 platelets 141 EKG tracing personally reviewed by me-normal sinus rhythm Chest x-ray film personally reviewed by me-clear White count 7.3 hemoglobin 12.4 platelets 154 sodium 141 potassium 3.7 creatinine 0.71 Assessment and plan: -Right ankle fracture, on December 07. Patient has been is a splint outpatient. ORIF with syndesmosis on December [address] Simpson. Patient to return to the OR December 15. Further intervention. -Acute postprocedure blood loss anemia expected from surgery -Facet -Essential hypertension, controlled Chlorthalidone 25 mg daily Lopressor 50 mg twice a day -Depression and anxiety not otherwise specified Prozac -GERD Pepcid 20 mg daily at bedtime -Primary osteoarthritis of the hands Tylenol as needed -Obesity BMI 34.8 Weight loss measures, outpatient Discussed with patient. Continue current medication. IV Ferrlecit. Thank you Dr. Simpson. Past Medical History Past Medical History: Hypertension History of Any Multi-Drug Resistant Organisms: None Reported Past Surgical History: Section Additional Past Surgical History / Comment(s): x2. Past Anesthesia/Blood Transfusion Reactions: No Reported Reaction Past Psychological History: No Psychological Hx Reported, Depression Smoking Status: Former smoker Past Alcohol Use History: Rare Past Drug Use History: None Reported
[2022-12-12] MEDS: SODIUM FERRIC GLUCONAT-SUCROSE 125 MG in SODIUM CHLORIDE 0.9% 100 ML IVPB SCH (19:47)
[2022-12-13] MEDS: FLUoxetine HCL 20 MG CAP PO SCH (07:53)
[2022-12-13] MEDS: CHLORTHALIDONE 25 MG TAB PO SCH (07:53)
[2022-12-13] MEDS: ENOXAPARIN 40 MG/0.4 ML SYRINGE SQ SCH (07:53)
[2022-12-13] MEDS: METOPROLOL TARTRATE 50 MG TAB PO SCH ×2 (07:53→20:34)
[2022-12-13] MEDS: ASPIRIN 81 MG PO SCH (07:53)
[2022-12-13] MEDS: SODIUM FERRIC GLUCONAT-SUCROSE 125 MG in SODIUM CHLORIDE 0.9% 100 ML IVPB SCH (09:57)
--- NOTE | 2022-12-13 10:34 | P.PN ---
Subjective Progress Note Date: 12/13/22 Principal diagnosis: Right trimalleolar fracture and dislocation Patient was seen at bedside this morning lying semirecumbent position with splints/bulky dressing present to the right lower extremity. Patient says she has been up around the room a little bit and trying to remain nonweightbearing to the right lower extremity. Patient patient did discuss the outcome of surgery with Dr. Simpson yesterday. She is aware of surgery for Wednesday to fix her posterior malleolus. Patient says she has urinated since surgery. Patient says the pain is well-controlled with oral medication. Patient denies any numbness/tingling in the right lower extremity. Patient denies any other changes. Patient denies chest pain, fever, shortness of breath, nausea, vomiting, change in, loss of bowel/bladder control. Objective - Vital Signs Vital signs: Vital Signs Temp 98.5 F 12/13/22 07:41 Pulse 66 12/13/22 07:41 Resp 17 12/13/22 07:41 BP 143/76 12/13/22 07:41 Pulse Ox 96 12/13/22 07:41 FiO2 Intake & Output 12/12/22 12/13/22 12/13/22 18:59 06:59 18:59 Other: # Voids 7 4 # Bowel Movements 1 - Exam Huber bandage and bulky splint present to the right lower extremity from the proximal casts to the MTPJ. Digits in the right foot are lukewarm to the touch. Cap refill under 3 seconds. Sensation is equal, symmetric, bilaterally intact. Patient has full range of motion in right hip and right knee in flexion/extension. Patient has full range of motion throughout the bilateral upper extremities and left lower extremity on exam. Negative Homans. - Labs CBC & Chem 7: 12/12/22 05:39 12/09/22 15:07 Assessment and Plan Assessment: 1. Right trimalleolar fracture and dislocation - Postop day #2 status post right ankle medial malleolus ORIF and syndesmosis Plan: 1. Right trimalleolar fracture and dislocation - right ankle medial malleolus ORIF and syndesmosis surgery performed , 12/10/2022. Patient stable at bedside this morning with Huber bandage in splint present to right lower extremity. Plan for surgery on 12/15/2022right ankle ORIF posterior malleolus. Oral pain medication as needed. We will continue to follow patient during her stay in hospital. 2. Appreciate medical management 3. Pain management - [place]; Vistaril 4. DVT prophylaxis - aspirin; Lovenox 5. GI prophylaxis - senna 6. PT/OT - nonweightbearing right lower extremity. Use walker 7. Encourage incentive spirometer use Time with Patient: Less than 30
--- NOTE | 2022-12-13 19:24 | P.PN ---
Progress Note - Text Progress Note Date: 12/13/22 - Chief Complaint Disruption of ankle mortise - History of Present Illness This is a pleasant 62-year-old patient, follows with Dr. Durham. Patient initially presented to the hospital ER on December 07. Pain in the right ankle while walking her dog she is wrapped around the lesion fell down. Severe pain in the right ankle. She was splinted prior to arrival. X-ray had revealed acute fracture with complete dislocation of the ankle. Lateral displacement. Respect her tibia. Posterior and medial malleolus fracture fragments up for present. Some separation of tibia and fibula. Soft tissue swelling. Patient was splinted in the ER and sent home. Patient seen by Dr. Simpson's office and sent to the ER, for surgery tomorrow. In a splint. Pain present. Patient otherwise has got a good exercise tolerance. No cardiac history. No chest pain or shortness of breath. December 10: Patient seen this morning. Resting in bed. Nothing by mouth for surgery. No new conditions. Discussed with nurse. Pending surgery this afternoon. EKG and chest x-ray reviewed. Informed nurse again patient is stable for surgery. December 11: Patient yesterday underwent open reduction internal fixation right ankle medial malleolus and syndesmosis. Had about 75% of lunch. No nausea vomiting. Pain control. In bed. December 12: Nonweightbearing on the right leg. Pain control. Eating fair. Patient to go down for further surgical intervention on Wednesday. December 13: Comfortable. Pain well controlled. Eating well. Pending further surgery on Wednesday. Active Medications Hydrocodone Bitart/Acetaminophen (Hydrocodone/Apap 5-325mg 1 Each Tab) 1 each PO Q4HR PRN PRN Reason: Moderate Pain (Scale 4 to 6) Last Admin: 12/11/22 21:26 Dose: 1 each Aspirin (Aspirin 81 Mg) 81 mg PO DAILY [facility] Last Admin: 12/13/22 07:53 Dose: 81 mg Chlorthalidone (Chlorthalidone 25 Mg Tab) 25 mg PO DAILY [facility] Last Admin: 12/13/22 07:53 Dose: 25 mg Enoxaparin Sodium (Enoxaparin 40 Mg/0.4 Ml Syringe) 40 mg SQ DAILY [facility] Last Admin: 12/13/22 07:53 Dose: 40 mg Fluoxetine HCl (Fluoxetine Hcl 20 Mg Cap) 20 mg PO DAILY [facility] Last Admin: 12/13/22 07:53 Dose: 20 mg Hydromorphone HCl (Hydromorphone 0.5 Mg/0.5 Ml Syringe) 0.5 mg IVP Q3HR PRN PRN Reason: Moderate Pain (Scale 4 to 6) Last Admin: 12/11/22 00:03 Dose: 0.5 mg Hydromorphone HCl (Hydromorphone 0.5 Mg/0.5 Ml Syringe) 0.5 mg IVP Q3HR PRN PRN Reason: Pain Scale 4 to 6 Hydromorphone HCl (Hydromorphone 1 Mg/Ml 1 Ml Syringe) 1 mg IVP Q3HR PRN PRN Reason: Pain Scale 7 to 10 Hydroxyzine Pamoate (Hydroxyzine Pamoate 25 Mg Cap) 25 mg PO Q6HR PRN PRN Reason: Nausea/Anxiety Ferric Sodium Gluconate 125 mg (/ Sodium Chloride) 110 mls @ 100 mls/hr IVPB DAILY [facility] Stop: 12/14/22 10:05 Last Admin: 12/13/22 09:57 Dose: 100 mls/hr Metoprolol Tartrate (Metoprolol Tartrate 50 Mg Tab) 50 mg PO BID [facility] Last Admin: 12/13/22 07:53 Dose: 50 mg Naloxone HCl (Naloxone 0.4 Mg/Ml 1 Ml Vial) 0.2 mg IV Q2M PRN PRN Reason: Opioid Reversal Ondansetron HCl (Ondansetron 4 Mg/2 Ml Vial) 4 mg IVP Q8HR PRN PRN Reason: Nausea And Vomiting Last Admin: 12/10/22 16:07 Dose: 4 mg Senna/Docusate Sodium (Sennosides-Docusate Sodium 1 Each Tab) 2 each PO HS PRN PRN Reason: Constipation Past medical history to include: Depression, anxiety, reflux Social history: Lives alone. Her daughter's [id number] lives downstairs. Patient smoked for about 15 years stopped about 30 years ago. Alcohol occasionally. Physical examination: VITAL SIGNS: 98.4, 56, 17, 106/67, 98% room air GENERAL: reclining in bed comfortable EYES: Pupils equal. Conjunctiva normal. HEENT: External appearance of nose and ears normal, oral cavity grossly normal. NECK: JVD not raised; masses not palpable. HEART: First and second heart sounds are normal; no edema. LUNGS: Respiratory rate normal; clear to auscultation. ABDOMEN: Soft, nontender, liver spleen not palpable, no masses palpable. PSYCH: Alert and oriented x3; mood and affect normal. MUSCULOSKELETAL:No Clubbing/cyanosis;muscles-grossly intact. Oriented the hands. Right ankle in postoperative dressing INVESTIGATIONS, reviewed in the clinical context: December 12: White count 7.1 hemoglobin 10.3 platelets 140 December 10: White count 6.1 hemoglobin 10.3 platelets 141 EKG tracing personally reviewed by me-normal sinus rhythm Chest x-ray film personally reviewed by me-clear White count 7.3 hemoglobin 12.4 platelets 154 sodium 141 potassium 3.7 creatinine 0.71 Assessment and plan: -Right ankle fracture, on December 07. Patient has been is a splint outpatient. ORIF with syndesmosis on December [address] Simpson. Patient to return to the OR December 15. Further intervention. -Acute postprocedure blood loss anemia expected from surgery -Facet -Essential hypertension, controlled Chlorthalidone 25 mg daily Lopressor 50 mg twice a day -Depression and anxiety not otherwise specified Prozac -GERD Pepcid 20 mg daily at bedtime -Primary osteoarthritis of the hands Tylenol as needed -Obesity BMI 34.8 Weight loss measures, outpatient Continue current medications. Discussed with patient. Thank you Dr. Simpson. Past Medical History Past Medical History: Hypertension History of Any Multi-Drug Resistant Organisms: None Reported Past Surgical History: Section Additional Past Surgical History / Comment(s): x2. Past Anesthesia/Blood Transfusion Reactions: No Reported Reaction Past Psychological History: No Psychological Hx Reported, Depression Smoking Status: Former smoker Past Alcohol Use History: Rare Past Drug Use History: None Reported
[2022-12-14] MEDS: FLUoxetine HCL 20 MG CAP PO SCH (08:10)
[2022-12-14] MEDS: ASPIRIN 81 MG PO SCH (08:10)
[2022-12-14] MEDS: METOPROLOL TARTRATE 50 MG TAB PO SCH ×2 (08:11→20:34)
[2022-12-14] MEDS: CHLORTHALIDONE 25 MG TAB PO SCH (08:11)
[2022-12-14] MEDS: ENOXAPARIN 40 MG/0.4 ML SYRINGE SQ SCH (08:11)
[2022-12-14] MEDS: SODIUM FERRIC GLUCONAT-SUCROSE 125 MG in SODIUM CHLORIDE 0.9% 100 ML IVPB SCH (08:37)
--- NOTE | 2022-12-14 14:34 | P.PN ---
Progress Note - Text Progress Note Date: 12/14/22 - Chief Complaint Disruption of ankle mortise - History of Present Illness This is a pleasant 62-year-old patient, follows with Dr. Durham. Patient initially presented to the hospital ER on December 07. Pain in the right ankle while walking her dog she is wrapped around the lesion fell down. Severe pain in the right ankle. She was splinted prior to arrival. X-ray had revealed acute fracture with complete dislocation of the ankle. Lateral displacement. Respect her tibia. Posterior and medial malleolus fracture fragments up for present. Some separation of tibia and fibula. Soft tissue swelling. Patient was splinted in the ER and sent home. Patient seen by Dr. Simpson's office and sent to the ER, for surgery tomorrow. In a splint. Pain present. Patient otherwise has got a good exercise tolerance. No cardiac history. No chest pain or shortness of breath. December 10: Patient seen this morning. Resting in bed. Nothing by mouth for surgery. No new conditions. Discussed with nurse. Pending surgery this afternoon. EKG and chest x-ray reviewed. Informed nurse again patient is stable for surgery. December 11: Patient yesterday underwent open reduction internal fixation right ankle medial malleolus and syndesmosis. Had about 75% of lunch. No nausea vomiting. Pain control. In bed. December 12: Nonweightbearing on the right leg. Pain control. Eating fair. Patient to go down for further surgical intervention on Wednesday. December 13: Comfortable. Pain well controlled. Eating well. Pending further surgery on Wednesday. December 14: In bed. Comforter. Pain well controlled. Pending surgery tomorrow. Active Medications Hydrocodone Bitart/Acetaminophen (Hydrocodone/Apap 5-325mg 1 Each Tab) 1 each PO Q4HR PRN PRN Reason: Moderate Pain (Scale 4 to 6) Last Admin: 12/11/22 21:26 Dose: 1 each Chlorthalidone (Chlorthalidone 25 Mg Tab) 25 mg PO DAILY [facility] Last Admin: 12/14/22 08:11 Dose: 25 mg Enoxaparin Sodium (Enoxaparin 40 Mg/0.4 Ml Syringe) 40 mg SQ DAILY [facility] Last Admin: 12/14/22 08:11 Dose: 40 mg Fluoxetine HCl (Fluoxetine Hcl 20 Mg Cap) 20 mg PO DAILY [facility] Last Admin: 12/14/22 08:10 Dose: 20 mg Hydromorphone HCl (Hydromorphone 0.5 Mg/0.5 Ml Syringe) 0.5 mg IVP Q3HR PRN PRN Reason: Moderate Pain (Scale 4 to 6) Last Admin: 12/11/22 00:03 Dose: 0.5 mg Hydromorphone HCl (Hydromorphone 0.5 Mg/0.5 Ml Syringe) 0.5 mg IVP Q3HR PRN PRN Reason: Pain Scale 4 to 6 Hydromorphone HCl (Hydromorphone 1 Mg/Ml 1 Ml Syringe) 1 mg IVP Q3HR PRN PRN Reason: Pain Scale 7 to 10 Hydroxyzine Pamoate (Hydroxyzine Pamoate 25 Mg Cap) 25 mg PO Q6HR PRN PRN Reason: Nausea/Anxiety Metoprolol Tartrate (Metoprolol Tartrate 50 Mg Tab) 50 mg PO BID BENJIE Last Admin: 12/14/22 08:11 Dose: 50 mg Naloxone HCl (Naloxone 0.4 Mg/Ml 1 Ml Vial) 0.2 mg IV Q2M PRN PRN Reason: Opioid Reversal Ondansetron HCl (Ondansetron 4 Mg/2 Ml Vial) 4 mg IVP Q8HR PRN PRN Reason: Nausea And Vomiting Last Admin: 12/10/22 16:07 Dose: 4 mg Senna/Docusate Sodium (Sennosides-Docusate Sodium 1 Each Tab) 2 each PO HS PRN PRN Reason: Constipation Past medical history to include: Depression, anxiety, reflux Social history: Lives alone. Her daughter's [id number]-rc-[id number] lives downstairs. Patient smoked for about 15 years stopped about 30 years ago. Alcohol occasionally. Physical examination: VITAL SIGNS: 97.9, 61, 18, 1 27 x 76, 97% room air GENERAL: reclining in bed comfortable EYES: Pupils equal. Conjunctiva normal. HEENT: External appearance of nose and ears normal, oral cavity grossly normal. NECK: JVD not raised; masses not palpable. HEART: First and second heart sounds are normal; no edema. LUNGS: Respiratory rate normal; clear to auscultation. ABDOMEN: Soft, nontender, liver spleen not palpable, no masses palpable. PSYCH: Alert and oriented x3; mood and affect normal. MUSCULOSKELETAL:No Clubbing/cyanosis;muscles-grossly intact. Oriented the hands. Right ankle in postoperative dressing INVESTIGATIONS, reviewed in the clinical context: December 12: White count 7.1 hemoglobin 10.3 platelets 140 December 10: White count 6.1 hemoglobin 10.3 platelets 141 EKG tracing personally reviewed by me-normal sinus rhythm Chest x-ray film personally reviewed by me-clear White count 7.3 hemoglobin 12.4 platelets 154 sodium 141 potassium 3.7 creatinine 0.71 Assessment and plan: -Right ankle fracture, on December 07. Patient has been is a splint outpatient. ORIF with syndesmosis on December [address] Simpson. Patient to return to the OR tomorrow. Further intervention. -Acute postprocedure blood loss anemia expected from surgery -Facet -Essential hypertension, controlled Chlorthalidone 25 mg daily Lopressor 50 mg twice a day -Depression and anxiety not otherwise specified Prozac -GERD Pepcid 20 mg daily at bedtime -Primary osteoarthritis of the hands Tylenol as needed -Obesity BMI 34.8 Weight loss measures, outpatient Going back to the OR tomorrow. Repeat labs. Thank you Dr. Simpson. Past Medical History Past Medical History: Hypertension History of Any Multi-Drug Resistant Organisms: None Reported Past Surgical History: Section Additional Past Surgical History / Comment(s): x2. Past Anesthesia/Blood Transfusion Reactions: No Reported Reaction Past Psychological History: No Psychological Hx Reported, Depression Smoking Status: Former smoker Past Alcohol Use History: Rare Past Drug Use History: None Reported
--- NOTE | 2022-12-14 17:04 | P.PN ---
Subjective Progress Note Date: 12/14/22 Principal diagnosis: Right trimalleolar fracture and dislocation Patient was seen at bedside this morning lying semirecumbent position with splints/bulky dressing present to the right lower extremity. Patient says she has been up around the room a little bit and trying to remain nonweightbearing to the right lower extremity. Patient patient did discuss the outcome of surgery with Dr. Simpson yesterday. She is aware of surgery for Wednesday to fix her posterior malleolus. Patient says she has urinated since surgery. Patient says the pain is well-controlled with oral medication. Patient denies any numbness/tingling in the right lower extremity. Patient denies any other changes. Patient denies chest pain, fever, shortness of breath, nausea, vomiting, change in, loss of bowel/bladder control. Objective - Vital Signs Vital signs: Vital Signs Temp 98.6 F 12/14/22 07:16 Pulse 65 12/14/22 07:16 Resp 17 12/14/22 07:16 BP 127/71 12/14/22 07:16 Pulse Ox 97 12/14/22 07:16 FiO2 Intake & Output 12/13/22 12/14/22 12/14/22 18:59 06:59 18:59 Intake Total 1080 Balance 1080 Intake: Oral 1080 Other: # Voids 5 3 - Exam Huber bandage and bulky splint present to the right lower extremity from the proximal casts to the MTPJ. Digits in the right foot are lukewarm to the touch. Cap refill under 3 seconds. Sensation is equal, symmetric, bilaterally intact. Patient has full range of motion in right hip and right knee in flexion/extension. Patient has full range of motion throughout the bilateral upper extremities and left lower extremity on exam. Negative Homans. - Labs CBC & Chem 7: 12/12/22 05:39 12/09/22 15:07 Assessment and Plan Assessment: 1. Right trimalleolar fracture and dislocation - Postop day #4 status post right ankle medial malleolus ORIF and syndesmosis Plan: 1. Right trimalleolar fracture and dislocation - right ankle medial malleolus ORIF and syndesmosis surgery performed , 12/10/2022. Patient stable at bedside this morning with Huber bandage in splint present to right lower extremity. Plan for surgery tmrw 12/15/2022right ankle ORIF posterior malleolus. Nothing by mouth after midnight tonight. Oral pain medication as needed. We will continue to follow patient during her stay in hospital. 2. Appreciate medical management 3. Pain management - [place]; Vistaril 4. DVT prophylaxis - withhold thinners 5. GI prophylaxis - senna 6. PT/OT - nonweightbearing right lower extremity. Use walker 7. Encourage incentive spirometer use Time with Patient: Less than 30
[2022-12-14] MEDS ORDERED: LACTATED RINGERS 1,000 ML IV SCH (19:45)
[2022-12-15 05:36] LABS: Basophils % (A) 0 %; Eosinophils # (A) 0.2 k/uL (0-0.7); Eosinophils % (A) 3 %; HCT 34.5 % (34.0-46.0); HGB 11.3 gm/dL (11.4-16.0); Lymphocytes # (A) 1.9 k/uL (1.0-4.8); Lymphocytes % (A) 23 %; MCH 27.3 pg (25.0-35.0); MCHC 32.8 g/dL (31.0-37.0); MCV 83.1 fL (80.0-100.0); Mean Platelet Volume 9.7; Monocytes # (A) 0.4 k/uL (0-1.0); Monocytes % (A) 5 %; Neutrophils # (A) 5.6 k/uL (1.3-7.7); Neutrophils % (A) 67 %; Platelet Count 222 k/uL (150-450); RBC 4.15 m/uL (3.80-5.40); RDW 14.9 % (11.5-15.5); WBC 8.3 k/uL (3.8-10.6)
[2022-12-15 05:37] LABS: African American GFR (CKD) 82 (>60 ml/min/1.73 sqM); Anion Gap 10 mmol/L; Blood Urea Nitrogen 22 mg/dL (7-17); Carbon Dioxide 31 mmol/L (22-30); Chloride 97 mmol/L (98-107); Glucose 118 mg/dL (74-99); Non-African American GFR(CKD) 71 (>60 ml/min/1.73 sqM); Potassium 3.8 mmol/L (3.5-5.1); Sodium 138 mmol/L (137-145)
[2022-12-15] MEDS: CHLORTHALIDONE 25 MG TAB PO SCH (07:29)
[2022-12-15] MEDS: FLUoxetine HCL 20 MG CAP PO SCH (07:29)
[2022-12-15] MEDS: ENOXAPARIN 40 MG/0.4 ML SYRINGE SQ SCH (07:30)
[2022-12-15] MEDS: METOPROLOL TARTRATE 50 MG TAB PO SCH (07:30)
[2022-12-15] MEDS ORDERED: LACTATED RINGERS 1,000 ML IV ONE (09:26)
[2022-12-15] MEDS ORDERED: ONDANSETRON 4 MG/2 ML VIAL IVP ONE (09:30)
[2022-12-15] MEDS ORDERED: DEXAMETHASONE SOD PHOSPHATE 4 MG/ML 1 ML VIAL IVP ONE (09:30)
[2022-12-15] MEDS ORDERED: MIDAZOLAM 2 MG/2 ML VIAL IVP ONE (10:01)
[2022-12-15] MEDS ORDERED: fentaNYL (PF) 50 MCG/ML 2 ML AMP IVP ONE (10:02)
[2022-12-15] MEDS ORDERED: SUCCINYLCHOLINE CHLORIDE 200 MG/10 ML VIAL IV ONE (10:13)
[2022-12-15] MEDS ORDERED: PROPOFOL 10 MG/ML 20 ML VIAL IV ONE (10:13)
[2022-12-15] MEDS ORDERED: ePHEDrine 50 MG/ML 1 ML VIAL ONE (10:13)
[2022-12-15] MEDS ORDERED: LIDOCAINE 2% INJ 20 MG/ML (2 ML VIAL) ONE (10:13)
[2022-12-15] MEDS ORDERED: SODIUM CHLORIDE 0.9% 100 ML BAG ONE (10:13)
[2022-12-15] MEDS ORDERED: ROPIVACAINE 5 MG/ML 30 ML VIAL ONE (10:13)
[2022-12-15] MEDS ORDERED: ceFAZolin 1,000 MG VIAL ONE (10:13)
[2022-12-15] MEDS ORDERED: fentaNYL (PF) 50 MCG/ML 2 ML AMP ONE (10:13)
--- NOTE | 2022-12-15 11:14 | P.ANPRN ---
Procedure Note - Anesthesia - Nerve Block Performed Right Popliteal Single Time Out Performed: Yes (1000) Date of Procedure: 12/15/22 Procedure Start Time: 10: Procedure Stop Time: 10:06 Location of Patient: PreOp Indication: Acute Post-Operative Pain, Requested by Surgeon Specifically requested for management of pain by DrCosmo: William Simpson Sedation Type: Sedate with meaningful contact maintained Preparation: Sterile Prep Position: Left Lateral Catheter: None Needle Types: Pajunk Needle Gauge: 21 Ultrasound used to visualize needle placement: Yes Ultrasound used to observe medication spread: Yes Injectate: 0.5% Ropivacaine (see comment for volume) (30cc) Blood Aspirated: No Pain Paresthesia on Injection Noted: No Resistance on Injection: Normal Image Stored and Saved: Yes Events: Uneventful and Well Tolerated
[2022-12-15 13:11] VITALS: TEMP 97.8
[2022-12-15 13:50] VITALS: RESP 12
--- NOTE | 2022-12-15 15:13 | FL ---
EXAMINATION TYPE: FL guidance operating room, XR ankle limited RT DATE OF EXAM: 12/15/2022 Comparison: None Clinical History: 62-year-old female ORIF Findings: Placement of bimalleolar ankle fixation as well as transient syndesmotic screw fixation. RT ankle ORIF with [place]. 2 min 9 sec fluoro time. 1.5488 mGycm2 DAP. 10 images saved. Impression: Intraoperative fluoroscopy as above.
[2022-12-15] MEDS: HYDROcodone/APAP 5-325MG 1 EACH TAB PO PRN (16:27)
[2022-12-15 16:58] VITALS: BP 139/66; PULSE 63
--- NOTE | 2022-12-15 17:21 | P.PN ---
Progress Note - Text Progress Note Date: 12/15/22 Patient was available did today at bedside after her second ORIF procedure on the right ankle. Patient is very comfortable at this time. She is very eager to be discharged home. Her vitals remain stable. She has been urinating with no issues. At this time patient is stable via orthopedics standpoint for discharge to home. Pain medication and other medications will be E prescribed pharmacy. Patient will remain nonweightbearing on the right lower extremity. Wound instructions along with cast instructions were discussed. Elevating and icing techniques were also discussed. Plan for recheck in office in [address] Simpson.
--- NOTE | 2022-12-15 17:28 | P.DS ---
Providers Date of admission: 12/14/22 09:39 Expected date of discharge: 12/15/22 Attending physician: William Simpson DO Consults: 12/09/22 22:37 Consult Physician Routine Consulting Provider: Bo Mota Consult Reason/Comments: medical management Do you want consulting provider notified?: Already Contacted Primary care physician: [facility] Course: Date of admission: 12/09/2022 Date of discharge: 12/15/2022 Admission diagnosis: Right trimalleolar ankle fracture, status post fall resulting in ankle dislocation Discharge diagnosis: Status post ORIF right ankle, medial malleolus, posterior malleolus and syndesmosis Attending physician: Dr. Simpson Surgical procedures: ORIF right ankle, medial malleolus, posterior malleolus and syndesmosis Brief history: Patient is a 62-year-old female who was initially evaluated and Yeyo Min Berg on 12/07/2022 after falling being knocked into by her dog. This did result in a ankle dislocation with trimalleolar fracture. An attempt was made to relocate the ankle by the emergency room staff, she was then placed in a splint, our orthopedic team was not contacted during this time. Patient was evaluated in the outpatient setting by Dr. Simpson on 12/09/2022, he recommended immediate admission to the hospital for surgical intervention. Patient was admitted to the hospital on 12/09/2022, she underwent her first surgery on 12/10/2022, this included fixation of the medial malleolus and syndesmosis. Patient then was taken back to surgery on 12/15/2022 for an ORIF of the posterior malleolus. Hospital course: Details of patient's surgery can be found in operative report. Patient tolerated the procedure well and was subsequently transported to orthopedic floor. Patient's orthopeidc and medical care was provided daily. Patient had daily laboratory tests performed for evaluation of overall blood counts. Patient had daily physical therapy to include strengthening range of motion as well as education with walker ambulation. Patient was treated with Lovenox for their postoperative DVT prophylaxis during their inpatient stay. Patient was noted to have a relatively uneventful postoperative course. Patient reported satisfactory pain control with oral pain medications by postoperative day 0. Patient showed satisfactory progress with physical therapy. Patient recovered well from both surgeries, pain was well-controlled. Discharge condition/disposition: Patient will be discharged home in stable condition. Discharge medications: Instructions are given on resumption of patient's normal daily medications per primary care recommendation, in addition patient will be prescribed [place] 5 mg/325 mg, aspirin milligrams, Duricef 500 mg, senna S. Discharge instructions: 1. Do not remove splint 2. Keep splint covered and dry while showering 3. Ice and elevate often 4. Nonweightbearing right lower extremity, utilize walker or crutches 5. Pain medication as needed 6. Aspirin 81 mg twice a day for DVT prophylaxis 7. Take antibiotics as prescribed 8. Plan [facility] Procedures: Open reduction internal fixation right ankle, medial malleolus, syndesmosis and posterior malleolus Patient Condition at Discharge: Fair Plan - Discharge Summary Discharge Rx Participant: No New Discharge Prescriptions: New HYDROcodone/APAP 5-325MG [[place] 5-325] 1 tab PO Q6HR PRN #28 tab PRN Reason: Pain Sennosides/Docusate Sodium [Senna-S 8.6-50 mg Tablet] 2 each PO DAILY PRN #30 tablet PRN Reason: Constipation Aspirin [Adult Low Dose Aspirin EC] 81 mg PO BID #60 tab cefaDROXiL [Duricef] 500 mg PO Q12HR 5 Days #10 cap No Action FLUoxetine HCL [PROzac] 20 mg PO DAILY Discharge Medication List FLUoxetine HCL [PROzac] 20 mg PO DAILY 12/09/22 [History] Aspirin [Adult Low Dose Aspirin EC] 81 mg PO BID #60 tab 12/15/22 [Rx] HYDROcodone/APAP 5-325MG [[place] 5-325] 1 tab PO Q6HR PRN #28 tab 12/15/22 [Rx] Sennosides/Docusate Sodium [Senna-S 8.6-50 mg Tablet] 2 each PO DAILY PRN #30 tablet 12/15/22 [Rx] cefaDROXiL [Duricef] 500 mg PO Q12HR 5 Days #10 cap 12/15/22 [Rx] Follow up Appointment(s)/Referral(s): None,Stated [REFERRING] - 1-2 days Wililam Simpson DO [Doctor of Osteopathic Medicine] - 12/24/22 11:30 am Activity/Diet/Wound Care/Special Instructions: Orthopedic discharge instructions: 1. Do not remove the splint 2. Keep the splint covered and dry while showering 3. Ice and elevate often 4. Nonweightbearing right lower extremity 5. Aspirin 81 mg twice a day for DVT prophylaxis 6. Pain medication as needed 7. Antibiotics as prescribed 8. Plan for [facility]-up at [facility] 2 weeks Discharge Disposition: HOME SELF-CARE
--- NOTE | 2022-12-21 20:23 | P.OP ---
Date of Procedure: 12/15/22 Preoperative Diagnosis: 1. TRIMALLEOLAR ANKLE FRACTURE DISLOCATION 2. S/P FALL FROM STANDING, TWISTING INJURY RIGHT ANKLE 3. S/P MEDIAL MALLEOLAR AND SYNDESMOTIC FIXATION 4. LARGE POSTERIORMALLEOLAR FRACTURE WITH CONTINUED ANKLE INSTABILITY Postoperative Diagnosis: 1. TRIMALLEOLAR ANKLE FRACTURE DISLOCATION 2. S/P FALL FROM STANDING, TWISTING INJURY RIGHT ANKLE 3. S/P MEDIAL MALLEOLAR AND SYNDESMOTIC FIXATION 4. LARGE POSTERIORMALLEOLAR FRACTURE WITH CONTINUED ANKLE INSTABILITY Procedure(s) Performed: 1. ORIF RIGHT ANKLE POSTERIOR MALLEOLAR FRACTURE 2. sHORT LEG SPLINT APPLICATION RIGHT LOWER EXTREMITY Implants: [employer] POSTERIOR MALLEOLAR TI PLATE AND SCREWS Anesthesia: GETA Surgeon: William Simpson Building Principal #1: Baltazar Moffett (RUDDY Valencia Was present and assisted with all aspects of the case from positioning to dressing placement) Estimated Blood Loss (ml): 25 IV fluids (ml): 1,200 Urine output (ml): 0 Pathology: none sent Condition: stable Disposition: PACU Indications for Procedure: Orthopedic Surgery Risk Review PATIENT IS A 62-YEAR-OLD FEMALE WHO PRESENTED AFTER A TWISTING INJURY TO HER [facility] ANKLE. sHE IS TO HAVE A TRIMALLEOLAR ANKLE FRACTURE DISLOCATION. tHE MEDIAL AND LATERAL MALLEOLAR REGIONS WERE FIXED HOWEVER AFTER THE ct SHOWED LARGE POSTERIOR MALLEOLAR FRACTURE WITH CONTINUED INSTABILITY WITHIN THE ANKLES WAS DISCUSSED THE PATIENT AND SHE WOULD LIKE IT FIXED NOW. sHE HAS SWELLING THE FIRST TIME AROUND AND SO WE OPTED NOT TO FIX IT AT THAT TIME AND WAIT A FEW DAYS THE SWELLING TO DECREASE. tHE SWELLING IS DECREASED TO THE POINT WHERE SHE HAD THE FRACTURE FIXED AT THIS TIME. sHE CONTINUES TO BE NEUROVASCULARLY INTACT. I have explained to the patient that this fracture needs stabilization. Based on the patients imaging, physical exam, and the rapid progression and disabling nature of her symptoms, at this time I recommend surgery in the form or a: OPEN REDUCTION INTERNAL FIXATION RIGHT POSTERIOR MALLEOLAR FRACTURE I discussed the risk and benefits of this procedure at length with tHE PATIENT. Questions were invited and answered, and the patient wishes to proceed as outlined below. Currently, I am recommendin. OPEN REDUCTION INTERNAL FIXATION RIGHT POSTERIOR MALLEOLAR FRACTURE 2. Review of surgical risks and benefits as well as an educational packet on the proposed surgical procedure. Risks: All surgical procedures come with inherent risks, including those related to positioning, anesthesia, intraoperative findings, and postoperative complications. It is important to understand that surgery does not come with any guarantee of a successful outcome as complications and adverse events are always possible. The patient was given a handout discussing the surgical procedure and risks associated with the intervention, both of which were discussed with the patient. These risks include but are not limited to the following: - Experiencing same, different or even worse symptoms compared to before surgery. - Requiring further surgery or other forms of treatment presently or at some time in the future . - On an extreme but fortunately relatively rare basis severe complication such as blindness, stroke, heart attack, temporary and/or permanent nerve injury, paralysis, coma, or may occur, sometimes without known explanation. - Surgical complications may include but are not limited to risk of infection, fluid accumulation in the surgical dissection site, including a seroma or hematoma, that requires additional surgery, wound drainage, bleeding, new numbness or weakness, vision changes/loss, spinal fluid leakage, non-healing and/or infected incision, headaches, difficulty or inability to swallow, hoarseness, hemopneumothorax, pneumothorax, injury to nerves, spinal cord, blood vessels, lymphatics or other vital organs (i.e., bowel injury, injury to the great vessels); heterotopic bone formation; complications related to the hardware such as screws, rods, including misplaced hardware, device failure, hardware fracture/breakage, or hardware loosening; retained surgical instrumentations or devices and the need for further surgery. - Medical risks of the planned surgery include but are not limited to generalized Infections to the whole body or local areas outside of the surgical site (sepsis), heart attack, bleeding, anaphylaxis, meningitis, seizure, epilepsy, hearing loss, burn jacob, laceration of the head or other areas of the body, bruising, hypersensitivity of the skin, bladder over distension; allergic reaction; shoulder injury related to positioning; fat, blood and air clots to other areas of the body like heart, lungs, brain; failure of internal organs such as lungs, kidneys, liver and excessive bleeding. If blood transfusions are necessary, note that transfusions may cause intolerance reactions such as anaphylaxis or other complex reactions. Despite best efforts, the results of surgery might not heal in terms of bone, soft tissues such as skin, fascia, ligaments, and joints. [facility] has multiple operating rooms with single and overlapping rooms running daily. They currently function under the required guidelines as produced by the [facility] with regards to the overlapping rooms and will continue to comply with changes to this policy as they occur. The requirements include and are complied with as follows: (1) the critical portions of the overlapping rooms will not occur at the same time, (2) the attending physician will be physically present during the critical portions of the procedure and immediately available during the entire case, and (3) a back-up attending is designated should the primary attending not be immediately available. The patient has had a chance to review all the listed information, has been given print outs detailing this information, and has had all his/her questions answered to their satisfaction. It was my pleasure to have seen and examined Lily. In our visit today we have had a chance to go over my understanding of our patient's current condition, the natural course history without intervention and various interventional options. Questions were invited and answered, and the patient wishes to proceed as outlined above. I have seen and examined the patient for 25 minutes and we have spent more than 50% of the time in repeat and detailed counseling about the patient's condition, its natural course history with out and as much as can be predicted with surgery and re-review of various surgical treatment options. In conclusion, Lily requested we proceed with the above suggested surgery and are willing to accept risks and limitations of the suggested surgery as nature of the disease process and our best attempts at treatment for the condition. Thank you again for allowing us to be part of your patient's care. Please don't hesitate to contact me if you have any further questions. Signed and authenticated by: William Kim [facility] [address] [place] [id number] Description of Procedure: The patient was seen and examined in the preoperative area. All preoperative protocols were followed. Informed consent was obtained risks and benefits of the procedure were discussed at length. Risks including bleeding infection damage to the surrounding tissue and risk of reoperation were discussed with the patient. Risk of anesthesia up to and including was a discussed with the patient. These are outlined in the risk reviewed. They were willing to accept these risks and all of the risks of surgery. The patient was given a weight- based dose of antibiotics in the form of 2 g Ancef. The patient was seen and evaluated by the anesthesia team who deemed them fit for surgery. The site was marked, the patient was willing to proceed with the procedure. The patient was transferred to the operative suite by the Department of anesthesia. There were then drifted off to sleep by the department of anesthesia and GETA anesthesia was used. Once adequate anesthesia had been obtained the patient was carefully transferred to the operative bed, prone. All bony prominences were padded accordingly. SCDs were placed on the nonoperative lower extremities. Arms were well padded. right posterior leg was exposed. Tourniquet was placed on the patient's right upper thigh to well-padded. 10:15 placed around this. Patient's leg was placed on a bone foam bump. The leg was assessed and there was good wrinkle sign posterior and so we can proceed with the surgery. Preoperative briefing was done with the operative team and everyone was ready for the procedure to start. The patients Right leg was then prepped and draped in the normal sterile fashion. Timeout was then performed and all parties in agreement with the procedure to be performed. posterior lateral approach to the ankle was taken. Incision was made just lateral to the Achilles tendon blunt dissection was taken down identifying the interval between the peroneal tendons. FHL was identified and protected. Subperiosteal dissection was undertaken over the posterior aspect of the tibia and posterior malleolus which was displaced. The fracture was then curetted and irrigated to allow for reduction once it was irrigated and mobilized it was reduced. It was still translated superiorly and so a posterior malleolar plate in a buttress fashion was selected. This plate was then placed to proximal shaft screw was drilled bicortically and placed which pushed the fracture inferiorly and reduced it. We then pinned the fracture fragment into position. Screws were then drilled with a distal locking holes at appropriate angles. AP and lateral imaging confirmed good placement of the hardware at this time. We then continued to fill the holes as able. The proximal roll was only partially filled due to the fracture line. The shaft screws were then drilled and all had good purchase. Adequate fracture reduction was obtained the eighth was taken through range of motion of the posterior malleolar fragment was stable along with the ankle in imaging in the AP and lateral confirmed fracture reduction with good placement of hardware. The wound was then copiously irrigated with normal sterile saline. The wound was then closed with 0 Vicryl in deep subcu tissue 2-0 Vicryl the superficial subcu tissue and 20 Dilantin the skin in running fashion. The wound was then cleaned and dressed sterilely with Adaptic 4 x 4 ABDs. She was then placed a well molded well-padded AO splint of the right lower extremity. The patient was then transferred back to their hospital bed. There were awakened by department of anesthesia having tolerated the procedure very well with no complications. The patient was then transported to the postoperative care unit in stable condition.
== END 2022-12-15 17:53 | disposition home or self-care (01) ==
LOC: EC 14:40 → 4SSUR 17:02 → UNDOADMOB 17:02 → 4SSUR 17:57 → OBSVTOIN 12-14 09:39 → INTOOBSV 12-14 09:39 → UNDODISIN 12-15 17:53
PROVIDERS: ADMIT Orthopaedic Surgery; ATTEND Orthopaedic Surgery
DX: S82.851A Displaced trimalleolar fracture of right lower leg, initial encounter for closed fracture (principal); W01.0XXA Fall on same level from slipping, tripping and stumbling without subsequent striking against object, initial encounter; G89.18 Other acute postprocedural pain; I10 Essential (primary) hypertension; F32.A Depression, unspecified; F41.9 Anxiety disorder, unspecified; K21.9 Gastro-esophageal reflux disease without esophagitis; M19.042 Primary osteoarthritis, left hand; M19.041 Primary osteoarthritis, right hand; E66.9 Obesity, unspecified; Z68.34 Body mass index [BMI] 34.0-34.9, adult; Z87.891 Personal history of nicotine dependence
CPT/HCPCS: 96365; 96366 ×3; 96372 ×5; 96375; 99284; 36415; 93005; 64445; 80053; 80048; 85025 ×4; 85610; 85730; 73590; 73600 ×2; 71045; 73700 ×2; 27814; 27829; 27769; G0378 ×8; C1713 ×2; C1734; J2250 ×2; J0330; J1100; J0690 ×3; J2405 ×2; J2001 ×2; J1650 ×5; J3010 ×2; J2916 ×3; J1170 ×3; J2795; J2704 ×2; 99285

== ENCOUNTER → 2023-12-06 | Outpatient (CLI) | payer OTHER ==
--- NOTE | 2023-12-06 18:20 | CT ---
EXAMINATION TYPE: CT ankle RT wo con CT DLP: 244.1 mGycm, Automated exposure control for dose reduction was used. DATE OF EXAM: 12/06/2023 4:13 PM COMPARISON: Multiple right ankle radiographs with most recent 11/04/2023, CT right ankle 12/10/2022. CLINICAL INDICATION:Female, 63 years old with history of M25.571 PAIN IN RIGHT ANKLE AND JOINTS OF RI GHT FO; PHH, post ankle dislocation TECHNIQUE: Axial images were obtained of the right ankle without the use of IV contrast. Additional coronal and sagittal reformatted images and soft tissue and bone window were obtained for review. 3-D reconstruction was created on a separate workstation. FINDINGS: Postfixation changes of the right ankle redemonstrated. Distal fibular and distal lateral t ibial fixation plates redemonstrated with prior screw removal tracts again seen. Posterior tibial fix ation plate with 5 screws identified with distal tips traversing the anterior tibial cortex. There ar e 2 superiorly obliquely oriented medial malleolar screws redemonstrated. None of the screws demonstr ate fracture or surrounding lucency. There is complete fusion of previously seen medial and posterior malleolar fractures without visualiz ed fracture lines. No new fractures. Degenerative changes with joint space narrowing and osseous matta ges involving the posterior tibiotalar joint space and medial tibiotalar joint space. There is wideni ng of the medial clear space measuring up to 4 mm, previously 3 mm. Soft tissue edema along the later al ankle is redemonstrated. Small posterior and plantar heel spur is redemonstrated. There is again m ild to moderate fusiform thickening at the Achilles insertion compatible with tendinopathy. IMPRESSION: 1. Redemonstration of fixation changes of the right ankle. Hardware appears intact and appropriately positioned. 2. Complete fusion of previously seen medial and posterior malleolar fractures without visualized fr acture line. 3. Degenerative changes within the posterior and medial tibiotalar joint space. 4. Stable to marginally increased widening of the medial clear space. 5. 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 [facility], , 12/06/2023 6:17 PM
== END | disposition home or self-care (01) ==
LOC: RADCTMAIN 15:39
PROVIDERS: ATTEND Orthopaedic Surgery
DX: S82.891A Other fracture of right lower leg, initial encounter for closed fracture (principal)